=== PATIENT | female | born 1955 | race Asian ===

== ENCOUNTER 2017-03-04 08:10 | Outpatient (CLI) | payer BC, OTHER ==
[~2017-03-04 08:10] MED LIST: ASPI-605 PO; CHOL100044 PO
[2017-03-04 08:50] LABS: CHOLESTEROL 202 mg/dL (<200); HDL CHOLESTEROL 54 mg/dL (40-60); LDL 121 mg/dL (0-99); TRIGLYCERIDES 111 mg/dL (30-150)
== END 2017-03-04 23:59 | disposition home or self-care (01) ==
LOC: LAB 08:10
PROVIDERS: ATTEND Family Medicine
DX: E78.5 Hyperlipidemia, unspecified (principal); D68.9 Coagulation defect, unspecified
CPT/HCPCS: 80061-TC; 86147

== ENCOUNTER 2017-03-05 13:21 | Outpatient (CLI) | payer BC, OTHER | END 2017-03-05 23:59 | disposition home or self-care (01) | LOC: CARD 13:21 | PROVIDERS: ATTEND Family Medicine | DX: I51.7 Cardiomegaly (principal) | CPT/HCPCS: 93307-TC ==

== ENCOUNTER 2017-03-13 10:29 | Outpatient (CLI) | payer BC, OTHER ==
[2017-03-16 14:14] LABS: *CARD ANTI-CARDIOLIPIN AB IgA <9 APL U/mL (0-11); *CARD ANTI-CARDIOLIPIN AB IgG <9 GPL U/mL (0-14); *CARD ANTI-CARDIOLIPIN AB IgM 14 MPL U/mL (0-12)
== END 2017-03-13 23:59 | disposition home or self-care (01) ==
LOC: LAB 10:29
PROVIDERS: ATTEND Family Medicine
DX: D68.9 Coagulation defect, unspecified (principal)
CPT/HCPCS: 36415; 86147

== ENCOUNTER 2017-03-16 09:40 | Outpatient (CLI) | payer BC, OTHER | END 2017-03-16 23:59 | disposition home or self-care (01) | LOC: US 09:40 | PROVIDERS: ATTEND Family Medicine | DX: D68.9 Coagulation defect, unspecified (principal) | CPT/HCPCS: 76700-TC ==

== ENCOUNTER 2017-03-26 12:14 | Outpatient (CLI) | payer BC, OTHER ==
[2017-03-26 13:02] LABS: BASOPHILS % (AUTO) 0.2 % (0.0-2.0); EOSINOPHILS # (AUTO) 0.1 /CMM (0.0-0.7); EOSINOPHILS % (AUTO) 0.9 % (0.0-6.0); HEMATOCRIT 42 % (33-45); HEMOGLOBIN 14.1 g/dL (11.5-14.8); LYMPHOCYTES # (AUTO) 1.9 /CMM (0.8-4.8); LYMPHOCYTES % (AUTO) 28.4 % (20.0-44.0); MEAN CORPUSCULAR HEMOGLOBIN 29 PG (26.0-33.0); MEAN CORPUSCULAR HGB CONC 34 g/dl (31.0-36.0); MEAN CORPUSCULAR VOLUME 86 fL (82-100); MONOCYTES # (AUTO) 0.5 /CMM (0.1-1.30); MONOCYTES % (AUTO) 7.4 % (2.0-12.0); NEUTROPHILS # (AUTO) 4.3 /CMM (1.8-8.9); NEUTROPHILS % (AUTO) 63.1 % (43.0-81.0); PLATELET COUNT (AUTO) 291 /CMM (150-450); RDW COEFFICIENT OF VARIATION 12.6 (11.5-15.0); RED BLOOD CELL COUNT(AUTO) 4.88 MIL/uL (4.0-5.2); WHITE BLOOD COUNT (AUTO) 6.8 K/uL (4.3-11.0)
[2017-03-26 13:27] LABS: APPEARANCE,URINE CLEAR (CLEAR); BILIRUBIN,URINE NEGATIVE (NEGATIVE); BLOOD, URINE NEGATIVE Ery/uL (NEGATIVE); COLOR,URINE YELLOW (YELLOW); KETONES,URINE NEGATIVE (NEGATIVE); LEUKOCYTE ESTERASE ,URINE NEGATIVE (NEGATIVE); NITRITE, URINE NEGATIVE (NEGATIVE); PROTEIN,URINE NEGATIVE (NEGATIVE); UGLUCOSE NEGATIVE (NEGATIVE); UROBILINOGEN,URINE 0.2 EU/dL (0.2)
[2017-03-26 14:01] LABS: C-REACTIVE PROTEIN 0.6 mg/dL (0.0-0.9)
[2017-03-26 14:02] LABS: ALBUMIN 3.6 g/dL (3.4-5.0); BILIRUBIN,TOTAL 0.5 mg/dL (0.2-1.0); CALCIUM, SERUM 8.6 mg/dL (8.5-10.1); CREATININE 0.9 mg/dL (0.6-1.3); POTASSIUM 3.9 mmol/L (3.5-5.1); TOTAL PROTEIN, SERUM 7.4 g/dL (6.4-8.2)
[2017-03-29 09:09] LABS: *PTT-LA 55.3 sec (0.0-43.6); *dPT CONFIRM RATIO 1.18 Ratio (0.00-1.40); *dRVVT 49.1 sec (0.0-47.0); *dRVVT MIX 41.9 sec (0.0-47.0)
[2017-03-30 05:28] LABS: *PTT-LA MIX 49.4 sec (0.0-40.6)
[2017-03-30 10:16] LABS: *INTERPRETATION Comment: (.)
== END 2017-03-26 23:59 | disposition home or self-care (01) ==
LOC: LAB 12:14
PROVIDERS: ATTEND Internal Medicine Hematology & Oncology
DX: I73.00 Raynaud's syndrome without gangrene (principal); M34.9 Systemic sclerosis, unspecified; D68.62 Lupus anticoagulant syndrome
CPT/HCPCS: 36415; 80053-TC; 81000-TC; 85025-TC; 85378-TC; 85613; 85652-TC; 85670; 85705; 85732; 86140-TC

== ENCOUNTER 2017-04-22 20:50 | Inpatient (IN) | payer BC, OTHER ==
[~2017-04-22] VITALS: Ht 165.1 cm; Wt 84.4 kg
--- NOTE | 2017-04-22 20:57 | NUR ---
to bed 3 ambulatory c/o intermittent dizziness x2 days, pt took 2 tabs of meclizine without any relief. pt aaox4 no acute distress noted, resp even and unlabored. place pt on cardiac monitoring, continuous pox. pending er md medley.
--- NOTE | 2017-04-22 21:01 | NUR ---
er md at bedside to eval pt with orders received.
[2017-04-22] MEDS ORDERED: METOCLOPRAMIDE HCL 10 MG/2 ML VIAL ONE (21:10)
[2017-04-22] MEDS ORDERED: IV NS 0.9% 1,000 ML ONE (21:10)
[2017-04-22] MEDS ORDERED: MORPHINE SULFATE INJ 2 MG/ML DISP.SYRIN ONE (21:10)
[2017-04-22] MEDS ORDERED: IV SET PRIMARY 1 EA INFUS.SET MC ONE (21:10)
--- NOTE | 2017-04-22 21:24 | NUR ---
pt medicated by rn per er md order.
--- NOTE | 2017-04-22 21:26 | NUR ---
pt at bedside.
[2017-04-22] MEDS ORDERED: MORPHINE SULFATE INJ 2 MG/ML DISP.SYRIN IV ONE (21:30)
[2017-04-22] MEDS ORDERED: IV NS 0.9% 1,000 ML BAG IV ONE (21:30)
[2017-04-22] MEDS ORDERED: METOCLOPRAMIDE HCL 10 MG/2 ML VIAL IV ONE (21:30)
--- NOTE | 2017-04-22 21:59 | NUR ---
pt still c/o dizziness upon movement, er md made aware.
--- NOTE | 2017-04-22 22:00 | NUR ---
heidy sanderson at bedside to re-eval pt.
[2017-04-22] MEDS ORDERED: DIAZEPAM 5 MG/ML 2 ML DISP.SYRIN ONE (22:07)
--- NOTE | 2017-04-22 22:08 | NUR ---
pt attempted to ambulate, pt still c/o dizziness, assisted pt back to bed. er md made aware with orders received. rn to medicate pt.
[2017-04-22] MEDS ORDERED: DIAZEPAM 10 MG TABLET PO ONE (22:30)
[2017-04-22] MEDS ORDERED: DIAZEPAM 5 MG/ML 2 ML DISP.SYRIN IV ONE (22:30)
--- NOTE | 2017-04-22 23:26 | NUR ---
pt attempted to ambulate, pt still c/o dizziness, assisted pt back to bed. er made aware.
--- NOTE | 2017-04-22 23:46 | NUR ---
PAGED DR PUGH FOR PANEL CALL
--- NOTE | 2017-04-22 23:48 | NUR ---
heidy sanderson talking to dr. valdez regarding pt admission.
--- NOTE | 2017-04-23 00:16 | NUR ---
regarding pt admission.
[2017-04-23] MEDS ORDERED: MAGNESIUM HYDROXIDE 30 ML UDC PO PRN (00:30)
[2017-04-23] MEDS ORDERED: IV 1/2NS 1000 ML 1,000 ML IV PRN (00:30)
[2017-04-23] MEDS ORDERED: TEMAZEPAM 15 MG CAPSULE PO PRN (00:30)
[2017-04-23] MEDS ORDERED: MORPHINE SULFATE INJ 2 MG/ML DISP.SYRIN IV PRN (00:30)
[2017-04-23] MEDS ORDERED: ONDANSETRON HCL/PF 4 MG/2 ML VIAL IVP PRN (00:30)
[2017-04-23 00:35] VITALS: BP 109/66
--- NOTE | 2017-04-23 00:35 | NUR ---
RN NOTES RECEIVED PT FROM ER WITH DX. OF DIZZINESS, A/OX4, A-FIB ON TELE MONITOR HR89, PT IS FEELING DIZZY, MAKE PT COMFORTABLE, CALL LIGHT WITHIN REACH, SIDERAILS UPX2 CONTINUE TO MONITOR
[2017-04-23] MEDS ORDERED: IV 1/2NS 1000 ML 1,000 ML IV ONE (01:01)
[2017-04-23] MEDS ORDERED: IV SET PRIMARY PUMP SET 1 EA INFUS.SET MC ONE (01:01)
--- NOTE | 2017-04-23 02:00 | NUR ---
RN NOTES PT WENT TO THE TOILET FROM AFIB CONVERTED TO SR
--- NOTE | 2017-04-23 06:54 | NUR ---
RN NOTES SLEEPING BUT AROUSABLE, DENIES PAIN, NO SOB, CALL LIGHT WITHIN REACH, PT NEEDS ATTENDED. ENDORSED TO DAYSHIFT NURSE FOR CONTINUITY OF CARE
--- NOTE | 2017-04-23 07:20 | NUR ---
RN NOTES SPOKE TO DR. TANG AND GOT AN ORDER OF MECLIZINE 25 MG PO, ORDER MOTED AND CARRIED OUT
[2017-04-23] MEDS: MECLIZINE HCL 12.5 MG TABLET PO PRN ×2 (07:24→20:06)
--- NOTE | 2017-04-23 07:27 | NUR ---
RN NOTES COMPLAINED OF DIZZINESS -MECLIZINE 250MG PO GIVEN ORDERED, V/S STABLE. ENDORSED TO [facility] FOR CONTINUITY OF CARE
[2017-04-23] MEDS ORDERED: MECLIZINE HCL 12.5 MG TABLET PO PRN (07:30)
[2017-04-23 07:46] LABS: BASOPHILS % (AUTO) 0.3 % (0.0-2.0); EOSINOPHILS % (AUTO) 0.7 % (0.0-6.0); HEMATOCRIT 41 % (33-45); HEMOGLOBIN 14.1 g/dL (11.5-14.8); LYMPHOCYTES # (AUTO) 1.7 /CMM (0.8-4.8); LYMPHOCYTES % (AUTO) 24.6 % (20.0-44.0); MEAN CORPUSCULAR HEMOGLOBIN 29 PG (26.0-33.0); MEAN CORPUSCULAR HGB CONC 34 g/dl (31.0-36.0); MEAN CORPUSCULAR VOLUME 86 fL (82-100); MONOCYTES # (AUTO) 0.6 /CMM (0.1-1.30); MONOCYTES % (AUTO) 8.6 % (2.0-12.0); NEUTROPHILS # (AUTO) 4.7 /CMM (1.8-8.9); NEUTROPHILS % (AUTO) 65.8 % (43.0-81.0); PLATELET COUNT (AUTO) 278 /CMM (150-450); RDW COEFFICIENT OF VARIATION 12.9 (11.5-15.0); WHITE BLOOD COUNT (AUTO) 7.1 K/uL (4.3-11.0)
--- NOTE | 2017-04-23 07:55 | NUR ---
MS RN RECEIVED ON BED, AWAKE,ALERT,ORIENTED X4,NOT IN ANY FORM OF DISTRESS, RESPIRATIONS EVEN AND UNLABORED,NO SOB NOTED. WILL MONITOR PATIENT.
[2017-04-23 08:00] VITALS: BP 94/43
--- NOTE | 2017-04-23 08:00 | NUR ---
MS/RN S/B Dr Gilman Seen by Dr Gilman - hypotension likely due to dehydration, continue with fluids. Outpatient ablation recommended due to episodes of a-fib.
[2017-04-23 08:14] LABS: THYROID STIMULATING HORMONE 1.745 uIU/mL (0.358-3.74)
[2017-04-23 08:18] LABS: BILIRUBIN,TOTAL 0.6 mg/dL (0.2-1.0); CALCIUM, SERUM 8.2 mg/dL (8.5-10.1); CREATININE 0.8 mg/dL (0.6-1.3); MAGNESIUM 1.9 mg/dL (1.8-2.4); PHOSPHORUS 3.7 mg/dL (2.5-4.9); POTASSIUM 3.8 mmol/L (3.5-5.1); TOTAL PROTEIN, SERUM 6.5 g/dL (6.4-8.2)
--- NOTE | 2017-04-23 09:10 | NUR ---
MS/RN Labs Morning labs reviewed: -BNP 254 -LDL 130
--- NOTE | 2017-04-23 09:30 | NUR ---
MS BYRD BREAKFAST SERVED,DUE MEDS GIVEN,TOLERATED WELL.
[2017-04-23] MEDS: PANTOPRAZOLE 40 MG TABLET.DR PO SCH (09:34)
[2017-04-23] MEDS: CHOLECALCIFEROL 1,000 UNIT TABLET (VIT D3) PO SCH (09:34)
[2017-04-23] MEDS: ASPIRIN EC 81 MG TABLET.DR PO SCH (09:36)
--- NOTE | 2017-04-23 10:30 | NUR ---
MS/RN S/B Dr Stuart Seen by Dr Stuart - continue with telemetry monitoring, 2D echo and neurology consult ordered.
--- NOTE | 2017-04-23 14:00 | NUR ---
MS RN REPORT GIVEN TO [facility] FOR CONTINUITY OF CARE.
[2017-04-23 16:00] VITALS: BP 105/62
[2017-04-23 20:00] VITALS: BP 112/61
--- NOTE | 2017-04-23 21:37 | NUR ---
GRINDER AND HONER OPERATOR AUTOMATIC NOTES RECEIVED PATIENT IN BED, IN NO APPARENT DISTRESS, DENIES SOB, DENIES PAIN. PATENT STATES THAT SHE IS STILL FEELING A LITTLE DIZZY, BUT THAT IT HAS IMPROVED. IV LINE PATENT, NO IV FLUIDS INFUSING AT THIS TIME. ALL NEEDS MET, CALL LIGHT WITHIN REACH.
[2017-04-23] MEDS: ACETAMINOPHEN 325 MG TABLET PO PRN (22:23)
[2017-04-24] VITALS (7 sets, daily range): BP systolic 99–115; BP diastolic 53–64
--- NOTE | 2017-04-24 03:30 | NUR ---
MOBILE SECURITY ARCHITECT NOTES NO APPARENT DISTRESS NOTED, ON TELE MONITOR SR 60S. ALL NEEDS MET, CALL LIGHT WITHIN REACH.
--- NOTE | 2017-04-24 06:54 | NUR ---
CABLE FERRYBOAT OPERATOR CLOSING NOTES PATIENT IN BED, NO APPARENT DISTRESS, NOTED, DENIES PAIN, NO SOB. PATIENT STATES SHE IS STILL GETTING DIZZY, BUT STATES IMPROVEMENT. ALL NEEDS MET, CALL LIGHT WITHIN REACH.
[2017-04-24 07:02] LABS: BASOPHILS % (AUTO) 0.4 % (0.0-2.0); EOSINOPHILS # (AUTO) 0.1 /CMM (0.0-0.7); EOSINOPHILS % (AUTO) 1.3 % (0.0-6.0); HEMATOCRIT 41 % (33-45); LYMPHOCYTES # (AUTO) 2.2 /CMM (0.8-4.8); LYMPHOCYTES % (AUTO) 31.9 % (20.0-44.0); MEAN CORPUSCULAR HEMOGLOBIN 30 PG (26.0-33.0); MEAN CORPUSCULAR HGB CONC 34 g/dl (31.0-36.0); MEAN CORPUSCULAR VOLUME 87 fL (82-100); MONOCYTES # (AUTO) 0.6 /CMM (0.1-1.30); MONOCYTES % (AUTO) 9.2 % (2.0-12.0); NEUTROPHILS # (AUTO) 3.9 /CMM (1.8-8.9); NEUTROPHILS % (AUTO) 57.2 % (43.0-81.0); PLATELET COUNT (AUTO) 260 /CMM (150-450); RDW COEFFICIENT OF VARIATION 12.8 (11.5-15.0); RED BLOOD CELL COUNT(AUTO) 4.74 MIL/uL (4.0-5.2); WHITE BLOOD COUNT (AUTO) 6.9 K/uL (4.3-11.0)
[2017-04-24 07:26] LABS: ALBUMIN 3.1 g/dL (3.4-5.0); BILIRUBIN,TOTAL 0.6 mg/dL (0.2-1.0); CALCIUM, SERUM 8.1 mg/dL (8.5-10.1); CREATININE 0.8 mg/dL (0.6-1.3); MAGNESIUM 1.8 mg/dL (1.8-2.4); PHOSPHORUS 3.9 mg/dL (2.5-4.9); POTASSIUM 3.8 mmol/L (3.5-5.1); TOTAL PROTEIN, SERUM 6.6 g/dL (6.4-8.2)
--- NOTE | 2017-04-24 08:00 | NUR ---
MOLD CLOSER AM NOTES RECEIVED ON BED, AWAKE,ALERT,ORIENTED X4,C/O DIZZINESS-ANTIVERT GIVEN PRN.RESPIRATIONS EVEN AND NON LABORED,NO SOB NOTED. WILL MONITOR PATIENT.
[2017-04-24] MEDS: ASPIRIN EC 81 MG TABLET.DR PO SCH (08:31)
[2017-04-24] MEDS: MECLIZINE HCL 12.5 MG TABLET PO PRN ×2 (08:32→14:19)
[2017-04-24] MEDS: PANTOPRAZOLE 40 MG TABLET.DR PO SCH (08:32)
--- NOTE | 2017-04-24 09:13 | NUR ---
PT C/O DIZZINESS GETTING WORST. INSTRUCTED PT TO CALL FOR ASSISTANCE WHEN GETTING OOB.NOTIFIED DR TANG WHO CAME TO SEE THE PT.CALL LIGHT PLACED WITHIN REACH.
[2017-04-24] MEDS: CHOLECALCIFEROL 1,000 UNIT TABLET (VIT D3) PO SCH (09:50)
--- NOTE | 2017-04-24 10:30 | NUR ---
PT SITTING IN BED FINISHING HER BREAKFAST.CALL LIGHT PLACED WITHIN REACH.WILL CONTINUE TO MONITOR.
--- NOTE | 2017-04-24 11:30 | NUR ---
PAGED DR BARBER REGARDING PT'S DIZZINESS WHICH REMAINS EVEN AFTER TAKING THE ANTIVERT.OFFERED ANTIVERT TO THE PT BUT PT REFUSED AND STATED THAT IT WAS TOO SOON AND WILL TAKE IT LATER.WILL CONTINUE TO MONITOR.
--- NOTE | 2017-04-24 13:00 | NUR ---
DR BARBER RETURNED CALL AND MADE AWARE OF PT'S CONTINUING DIZZINESS WITH NO NEW ORDER.DR BARBER STATED THAT PT HAS NO STROKE AND TO CLARIFY ANTIVERT ORDERS TO THE HOSPITALIST,DR TANG.
[2017-04-24] MEDS: ACETAMINOPHEN 325 MG TABLET PO PRN ×2 (13:17→21:58)
[2017-04-24] MEDS ORDERED: SCOPOLAMINE HBR 1 EA PATCH.TD72 TD SCH (15:00)
--- NOTE | 2017-04-24 18:58 | NUR ---
RN PM NOTES PATIENT IN BED WITH FAMILY. NO ACUTE DISTRESS NOTED. PATIENT STATED FEELING A LITTLE DIZZY BUT DENIES PAIN. BED IN LOWEST POSITION. CALL LIGHT WITHIN REACH. WILL CONTINUE TO MONITOR.
--- NOTE | 2017-04-24 19:45 | NUR ---
TELE/RN NOTES RECEIVED PT. LYING DOWN IN BED. AWAKE, ALERT AND ORIENTED X4. BREATHING EVEN AND UNLABORED ON ROOM AIR. NO SOB, RESPIRATORY DISTRESS OR COMPLAINTS OF PAIN NOTED AT THIS TIME. PT. COMPLAINS OF SLIGHT DIZZINESS. PT. HAS NO IV ACCESS MD AWARE. EDUCATED PT. ON CALLING FOR ASSISTANCE BEFORE GETTING OUT OF BED. PT. VERBALIZED UNDERSTANDING. BED IN LOWEST POSITION, CALL LIGHT WITHIN REACH, WILL CONTINUE TO MONITOR. Addendum: 04/24/17 at 2308 by CONCETTA RODRÍGUEZ RN PT. WITH EXTERNAL GLOVE BOARDER PRESENT AND INTACT CURRENT RHYTHM = SINUS RHYTHM HR 78.
[2017-04-24] MEDS: DIAZEPAM 2 MG TABLET PO PRN (21:58)
[2017-04-25 04:00] VITALS: BP 103/63
--- NOTE | 2017-04-25 07:00 | NUR ---
TELE/RN NOTES PT. LYING DOWN IN BED. AWAKE, ALERT AND ORIENTED X4. BREATHING EVEN AND UNLABORED ON ROOM AIR. NO SOB, RESPIRATORY DISTRESS OR COMPLAINTS OF PAIN NOTED AT THIS TIME. NO COMPLAINTS OF DIZZINESS AT THIS TIME. PT. STATED SHE HAD ONE EPISODE OF DIZZINESS IN THE MIDDILE OF THE NIGHT BUT IT WENT AWAY. PT. HAS NO IV ACCESS MD AWARE. ALL PT. NEEDS MET. BED IN LOWEST POSITION, CALL LIGHT WITHIN REACH, WILL ENDORSE TO DAYSHIFT NURSE FOR CONTINUITY OF CARE.
--- NOTE | 2017-04-25 07:25 | NUR ---
AM RN NOTE Received patient awake, A/O X4 verbally responsive. No SOB noted resp even and non-labored. No IV site, MD aware. No acute distress noted. Bed in low locked position. Will continue to monitor. Call light with in reach.
[2017-04-25 08:00] VITALS: BP 109/76
[2017-04-25] MEDS: CHOLECALCIFEROL 1,000 UNIT TABLET (VIT D3) PO SCH (08:03)
[2017-04-25] MEDS: ASPIRIN EC 81 MG TABLET.DR PO SCH (08:03)
[2017-04-25] MEDS: PANTOPRAZOLE 40 MG TABLET.DR PO SCH (08:03)
[2017-04-25] MEDS: MECLIZINE HCL 12.5 MG TABLET PO PRN (09:19)
[2017-04-25] MEDS ORDERED: ONDANSETRON 4 MG TAB.RAPDIS PO PRN (10:30)
[2017-04-25 16:00] VITALS: BP 117/71
--- NOTE | 2017-04-25 18:45 | NUR ---
AM RN NOTE Patient resting in her bed, no acute distress noted. Will endorse care to next shift.
--- NOTE | 2017-04-25 19:45 | NUR ---
RN OPENING NOTES RECEIVED REPORT FROM ROBERTO NIELSEN RN. FOUND Pt AWAKE SITTING IN CHAIR. ON TELE SR. Pt IS A/OX4, VERBAL , ABLE TO MAKE NEEDS KNOWN. NO S/S OF ACUTE DISTRESS OR SOB NOTED. NO C/O PAIN OR DIZZINESS AT THIS TIME. NO IV ACCESS MD AWARE. SAFETY MEASURES IN PLACE. BED LOW, LOCKED, HOB ELEVATED, SIDE RAILS UP, CALL LIGHT AND BEDSIDE TABLE WITHIN REACH. WILL CONTINUE TO MONITOR Pt THROUGHOUT THE NIGHT FOR SAFETY.
[2017-04-25 20:00] VITALS: BP 121/74
[2017-04-25] MEDS: ACETAMINOPHEN 325 MG TABLET PO PRN (21:20)
[2017-04-25] MEDS: DIAZEPAM 2 MG TABLET PO PRN (21:20)
[2017-04-26] VITALS: BP 96/54
[2017-04-26 04:00] VITALS: BP 100/58
--- NOTE | 2017-04-26 06:39 | NUR ---
RN CLOSING NOTES NO SIGNIFICANT CHANGES DURING THE SHIFT. ALL NEEDS MET AND ATTENDED TO. SAFETY MEASURES IN PLACE. WILL ENDORSE TO DAYSHIFT RN FOR Pt's SON.
--- NOTE | 2017-04-26 07:30 | NUR ---
AM RN NOTE Received patient awake, A/O X4 verbally responsive. On tele monitor, SR. No HL/IV site. Pt still with on & off episodes of dizziness @ times. Bed in low locked position, call light with in easy reach. Will continue to monitor.
[2017-04-26 08:00] VITALS: BP 101/53
[2017-04-26] MEDS: ASPIRIN EC 81 MG TABLET.DR PO SCH (08:54)
[2017-04-26] MEDS: CHOLECALCIFEROL 1,000 UNIT TABLET (VIT D3) PO SCH (08:55)
[2017-04-26] MEDS: PANTOPRAZOLE 40 MG TABLET.DR PO SCH (08:55)
[2017-04-26] MEDS ORDERED: SCOP1PAT TP (10:17)
--- NOTE | 2017-04-26 12:15 | NUR ---
AM RN NOTE Patient seen and assessed by Dr. Stuart with discharge (home) order. Patient awake, A/O X4 verbally responsive. Discharge instructions on medications and teachings given and verbalize understanding. No acute distress noted. No HL. Skin intact. Will continue to monitor.
--- NOTE | 2017-04-26 13:15 | NUR ---
AM RN NOTE Patient awake, A/O X4. Discharged/ left unit at this time as accompanied by spouse with all her belongings.
== END 2017-04-26 13:15 | disposition home or self-care (01) | DRG 74 ==
LOC: ER 20:53 → TELE 04-23 00:26 → MED 04-26 08:42
PROVIDERS: ADMIT Internal Medicine; ATTEND Internal Medicine
DX: G90.8 Other disorders of autonomic nervous system (principal); H81.399 Other peripheral vertigo, unspecified ear; I49.9 Cardiac arrhythmia, unspecified; E66.9 Obesity, unspecified; I73.00 Raynaud's syndrome without gangrene; Z68.31 Body mass index [BMI] 31.0-31.9, adult; K21.9 Gastro-esophageal reflux disease without esophagitis; I95.1 Orthostatic hypotension; I48.0 Paroxysmal atrial fibrillation
CPT/HCPCS: 36415; 70450-TC; 71010-TC; 80053-TC; 80061-TC; 83540-TC; 83735-TC; 83880; 84100-TC; 84443-TC; 85025-TC; 87081-TC; 93880-TC; A4606; J2270; J2765; J3360; J3490; J7030; J8597; Z7610

== ENCOUNTER 2017-04-27 11:23 | Outpatient (CLI) | payer BC, OTHER ==
[~2017-04-27 11:23] MED LIST changes: +SCOP1PAT TP
[2017-04-27 12:57] LABS: THYROID STIMULATING HORMONE 1.04 uIU/mL (0.358-3.74)
== END 2017-04-27 23:59 | disposition home or self-care (01) ==
LOC: LAB 11:23
PROVIDERS: ATTEND Family Medicine
DX: I48.0 Paroxysmal atrial fibrillation (principal); R42 Dizziness and giddiness
CPT/HCPCS: 36415; 84439-TC; 84443-TC; 84480

== ENCOUNTER 2017-04-28 08:22 | Outpatient (CLI) | payer BC, OTHER ==
[2017-04-28] MEDS ORDERED: GADOVERSETAMIDE 5 MMOL/10 ML VIAL IJ ONE (08:23)
== END 2017-04-28 23:59 | disposition home or self-care (01) ==
LOC: MRI 08:22
PROVIDERS: ATTEND Family Medicine
DX: R42 Dizziness and giddiness (principal)
CPT/HCPCS: 70542; 70553; A9579

== ENCOUNTER 2017-07-21 08:38 | Outpatient (CLI) | payer BC, OTHER | END 2017-07-21 23:59 | disposition home or self-care (01) | LOC: CT 08:38 | PROVIDERS: ATTEND Internal Medicine Pulmonary Disease | DX: R76.11 Nonspecific reaction to tuberculin skin test without active tuberculosis (principal) | CPT/HCPCS: 71250-TC ==

== ENCOUNTER 2017-08-20 13:52 | Outpatient (CLI) | payer BC, OTHER | END 2017-08-20 23:59 | disposition home or self-care (01) | LOC: LAB 13:52 | PROVIDERS: ATTEND Family Medicine | DX: Z12.4 Encounter for screening for malignant neoplasm of cervix (principal); Z11.3 Encounter for screening for infections with a predominantly sexual mode of transmission | CPT/HCPCS: 87491; 87591; 88142 ==

== ENCOUNTER 2017-10-28 08:38 | Outpatient (CLI) | payer BC ==
[2017-10-28 09:38] LABS: ALBUMIN 4.1 g/dL (3.4-5.0); BILIRUBIN,TOTAL 0.5 mg/dL (0.2-1.0); CALCIUM, SERUM 9.1 mg/dL (8.5-10.1); CREATININE 0.8 mg/dL (0.6-1.3)
[2017-10-28 09:39] LABS: BASOPHILS % (AUTO) 0.3 % (0.0-2.0); EOSINOPHILS # (AUTO) 0.1 /CMM (0.0-0.7); EOSINOPHILS % (AUTO) 1.1 % (0.0-6.0); HEMATOCRIT 44 % (33-45); HEMOGLOBIN 14.5 g/dL (11.5-14.8); LYMPHOCYTES % (AUTO) 29.3 % (20.0-44.0); MEAN CORPUSCULAR HEMOGLOBIN 29 PG (26.0-33.0); MEAN CORPUSCULAR HGB CONC 33 g/dl (31.0-36.0); MEAN CORPUSCULAR VOLUME 87 fL (82-100); MONOCYTES # (AUTO) 0.5 /CMM (0.1-1.30); MONOCYTES % (AUTO) 7.7 % (2.0-12.0); NEUTROPHILS # (AUTO) 4.1 /CMM (1.8-8.9); NEUTROPHILS % (AUTO) 61.6 % (43.0-81.0); PLATELET COUNT (AUTO) 323 /CMM (150-450); RDW COEFFICIENT OF VARIATION 12.4 (11.5-15.0); WHITE BLOOD COUNT (AUTO) 6.7 K/uL (4.3-11.0)
[2017-10-28 09:47] LABS: THYROID STIMULATING HORMONE 0.984 uIU/mL (0.358-3.74)
[2017-10-29 17:27] LABS: *ANA ANTI-CENTROMERE B AB <0.2 AI (0.0-0.9); *ANA ANTI-DNA(DS) AB, QN <1 IU/mL (0-9); *ANA ANTI-JO-1 <0.2 AI (0.0-0.9); *ANA ANTICHROMATIN ANTIBODY <0.2 AI (0.0-0.9); *ANA RNP ANTIBODIES 0.5 AI (0.0-0.9); *ANA SJOGREN'S ANTI-SS-A <0.2 AI (0.0-0.9); *ANA SJOGREN'S ANTI-SS-B <0.2 AI (0.0-0.9); *ANAANTI-SCLERODERMA-70 AB 1.4 AI (0.0-0.9); *ANASMITH AB <0.2 AI (0.0-0.9)
[2017-10-30 05:39] LABS: COMPLEMENT C3, SERUM 144 mg/dL (82-167); COMPLEMENT C4, SERUM 38 mg/dL (14-44)
[2017-10-30 13:25] LABS: *ANCANTIMYELOPEROXIDASE (MPO) <9.0 U/mL (0.0-9.0); *ANCANTIPROTEINASE 3 (PR-3) AB <3.5 U/mL (0.0-3.5)
[2017-11-02 14:13] LABS: *ANCA ATYPICAL p-ANCA <1:20 titer (Neg:<1:20); *ANCA CYTOPLASMIC (C-ANCA) <1:20 titer (Neg:<1:20); *ANCA PERINUCLEAR (P-ANCA) <1:20 titer (Neg:<1:20)
== END 2017-10-28 23:59 | disposition home or self-care (01) ==
LOC: LAB 08:38
PROVIDERS: ATTEND Family Medicine
DX: L94.0 Localized scleroderma [morphea] (principal); E55.9 Vitamin D deficiency, unspecified; R79.89 Other specified abnormal findings of blood chemistry
CPT/HCPCS: 36415; 80053-TC; 80061-TC; 82306; 83520; 84439-TC; 84443-TC; 85025-TC; 86160; 86225; 86235; 86256; 86431-TC

== ENCOUNTER 2018-03-25 07:57 | Outpatient (CLI) | payer BC ==
[2018-03-25 08:50] LABS: APPEARANCE,URINE CLEAR (CLEAR); BILIRUBIN,URINE NEGATIVE (NEGATIVE); BLOOD, URINE NEGATIVE Ery/uL (NEGATIVE); COLOR,URINE YELLOW (YELLOW); KETONES,URINE NEGATIVE (NEGATIVE); LEUKOCYTE ESTERASE ,URINE NEGATIVE (NEGATIVE); NITRITE, URINE NEGATIVE (NEGATIVE); PROTEIN,URINE NEGATIVE (NEGATIVE); UGLUCOSE NEGATIVE (NEGATIVE); UROBILINOGEN,URINE 0.2 EU/dL (0.2)
[2018-03-25 09:25] LABS: ALANINE AMINOTRANSFERASE 33 U/L (12-78); ALBUMIN 3.9 g/dL (3.4-5.0); ALKALINE PHOSPHATASE 73 U/L (46-116); ASPARTATE AMINOTRANSFERASE 26 U/L (15-37); BILIRUBIN,TOTAL 0.5 mg/dL (0.2-1.0); CALCIUM, SERUM 9.1 mg/dL (8.5-10.1); CARBON DIOXIDE 22 mmol/L (21-32); CHLORIDE 106 mmol/L (98-107); CREATININE 0.8 mg/dL (0.6-1.3); GLUCOSE 104 mg/dL (74-106); POTASSIUM 4.2 mmol/L (3.5-5.1); SODIUM SERUM 140 mmol/L (136-145); TOTAL PROTEIN, SERUM 7.7 g/dL (6.4-8.2); UREA NITROGEN, BLOOD 20 mg/dL (7-18)
[2018-03-25 09:34] LABS: CHOLESTEROL 177 mg/dL (<200); HDL CHOLESTEROL 63 mg/dL (40-60); LDL 100 mg/dL (0-99); THYROID STIMULATING HORMONE 1.207 uIU/mL (0.358-3.74); TRIGLYCERIDES 126 mg/dL (30-150)
[2018-03-25 09:36] LABS: C-REACTIVE PROTEIN < 0.2 mg/dL (0.0-0.9)
[2018-03-26 20:14] LABS: *ANA SJOGREN'S ANTI-SS-A <0.2 AI (0.0-0.9); *ANA SJOGREN'S ANTI-SS-B <0.2 AI (0.0-0.9)
== END 2018-03-25 23:59 | disposition home or self-care (01) ==
LOC: LAB 07:57
PROVIDERS: ATTEND Family Medicine
DX: I48.0 Paroxysmal atrial fibrillation (principal); E78.2 Mixed hyperlipidemia; M34.9 Systemic sclerosis, unspecified; E55.9 Vitamin D deficiency, unspecified
CPT/HCPCS: 36415; 80053-TC; 80061-TC; 81000-TC; 82306; 83735-TC; 84439-TC; 84443-TC; 85652-TC; 86140-TC; 86235; 86431-TC

== ENCOUNTER 2018-05-19 08:23 | Outpatient (CLI) | payer BC | END 2018-05-19 23:59 | disposition home or self-care (01) | LOC: CT 08:23 | PROVIDERS: ATTEND Internal Medicine Pulmonary Disease | DX: I25.10 Atherosclerotic heart disease of native coronary artery without angina pectoris (principal); J39.8 Other specified diseases of upper respiratory tract; R76.11 Nonspecific reaction to tuberculin skin test without active tuberculosis | CPT/HCPCS: 71250-TC ==

== ENCOUNTER 2018-07-30 07:55 | Outpatient (CLI) | payer BC | END 2018-07-30 23:59 | disposition home or self-care (01) | LOC: LAB 07:55 | PROVIDERS: ATTEND Family Medicine | DX: Z11.59 Encounter for screening for other viral diseases (principal); Z79.899 Other long term (current) drug therapy; Z88.0 Allergy status to penicillin; Z88.2 Allergy status to sulfonamides | CPT/HCPCS: 36415; 83735-TC; 86709-TC; 86803 ==

== ENCOUNTER 2018-08-04 09:15 | Outpatient (CLI) | payer BC | END 2018-08-04 23:59 | disposition home or self-care (01) | LOC: LAB 09:15 | PROVIDERS: ATTEND Family Medicine | DX: Z12.4 Encounter for screening for malignant neoplasm of cervix (principal); Z11.3 Encounter for screening for infections with a predominantly sexual mode of transmission; Z88.0 Allergy status to penicillin; Z88.2 Allergy status to sulfonamides | CPT/HCPCS: 87491; 87591; 88142 ==

== ENCOUNTER 2018-09-03 12:24 | Outpatient (CLI) | payer BC ==
[2018-09-03 13:45] LABS: BASOPHILS % (AUTO) 0.3 % (0.0-2.0); EOSINOPHILS % (AUTO) 0.5 % (0.0-6.0); HEMATOCRIT 43 % (33-45); HEMOGLOBIN 14.1 g/dL (11.5-14.8); LYMPHOCYTES # (AUTO) 1.9 /CMM (0.8-4.8); LYMPHOCYTES % (AUTO) 25.4 % (20.0-44.0); MEAN CORPUSCULAR HGB CONC 33 g/dl (31.0-36.0); MEAN CORPUSCULAR VOLUME 88 fL (82-100); MONOCYTES # (AUTO) 0.6 /CMM (0.1-1.30); MONOCYTES % (AUTO) 8.5 % (2.0-12.0); NEUTROPHILS # (AUTO) 4.9 /CMM (1.8-8.9); NEUTROPHILS % (AUTO) 65.3 % (43.0-81.0); PLATELET COUNT (AUTO) 322 /CMM (150-450); RDW COEFFICIENT OF VARIATION 12.7 (11.5-15.0); RED BLOOD CELL COUNT(AUTO) 4.85 MIL/uL (4.0-5.2); WHITE BLOOD COUNT (AUTO) 7.4 K/uL (4.3-11.0)
[2018-09-03 14:06] LABS: ALBUMIN 3.7 g/dL (3.4-5.0); BILIRUBIN,TOTAL 0.4 mg/dL (0.2-1.0); CALCIUM, SERUM 9.2 mg/dL (8.5-10.1); CREATININE 0.8 mg/dL (0.6-1.3); POTASSIUM 3.9 mmol/L (3.5-5.1); TOTAL PROTEIN, SERUM 7.5 g/dL (6.4-8.2)
[2018-09-03 14:14] LABS: THYROID STIMULATING HORMONE 0.881 uIU/mL (0.358-3.74); URIC ACID 4.7 mg/dL (2.6-7.2)
== END 2018-09-03 23:59 | disposition home or self-care (01) ==
LOC: LAB 12:24
PROVIDERS: ATTEND Family Medicine
DX: Z11.3 Encounter for screening for infections with a predominantly sexual mode of transmission (principal); M25.50 Pain in unspecified joint; E78.2 Mixed hyperlipidemia; E55.9 Vitamin D deficiency, unspecified
CPT/HCPCS: 36415; 80053-TC; 80061-TC; 84439-TC; 84443-TC; 84550-TC; 85025-TC; 86431-TC; 86592; 86706; 87806

== ENCOUNTER 2019-01-11 06:50 | Outpatient (CLI) | payer BC | END 2019-01-11 23:59 | disposition home or self-care (01) | LOC: RAD 06:50 | DX: M79.642 Pain in left hand (principal) | CPT/HCPCS: 73130-TC ==

== ENCOUNTER 2019-02-12 07:46 | Emergency (ER) | payer BC, OTHER ==
[~2019-02-12] VITALS: Ht 165.1 cm; Wt 87.1 kg
--- NOTE | 2019-02-12 08:23 | NUR ---
Patient presented to the ER c/o dizziness. On room air, breathing evenly and unlabored. connected to the monitor and pulse ox. kept comfortable, will continue to monitor accordingly.
[2019-02-12] MEDS ORDERED: ONDANSETRON HCL/PF 4 MG/2 ML VIAL ONE (08:30)
[2019-02-12] MEDS ORDERED: IV NS 0.9% 250 ML IV ONE (08:30)
[2019-02-12] MEDS ORDERED: ONDANSETRON HCL/PF 4 MG/2 ML VIAL IV ONE (08:30)
--- NOTE | 2019-02-12 09:26 | NUR ---
Peripheral IV removed. Patient discharged to home in stable condition. Written and verbal after care instructions given. Patient verbalizes understanding of instruction.
[2019-02-12 09:28] VITALS: BP 131/76
== END 2019-02-12 09:33 | disposition home or self-care (01) ==
LOC: ER 07:47
DX: R42 Dizziness and giddiness (principal); Z88.0 Allergy status to penicillin; Z88.2 Allergy status to sulfonamides; Z79.82 Long term (current) use of aspirin
CPT/HCPCS: 96374; 99283; A4606; J2405; J7050

== ENCOUNTER 2019-06-01 09:06 | Outpatient (CLI) | payer BC, OTHER ==
[2019-06-01 11:05] LABS: BASOPHILS % (AUTO) 0.4 % (0.0-2.0); EOSINOPHILS % (AUTO) 0.8 % (0.0-6.0); HEMATOCRIT 43 % (33-45); HEMOGLOBIN 14.7 g/dL (11.5-14.8); LYMPHOCYTES # (AUTO) 1.8 /CMM (0.8-4.8); LYMPHOCYTES % (AUTO) 24.5 % (20.0-44.0); MEAN CORPUSCULAR HGB CONC 34 g/dl (31.0-36.0); MEAN CORPUSCULAR VOLUME 88 fL (82-100); MONOCYTES # (AUTO) 0.5 /CMM (0.1-1.30); MONOCYTES % (AUTO) 7.4 % (2.0-12.0); NEUTROPHILS # (AUTO) 4.9 /CMM (1.8-8.9); NEUTROPHILS % (AUTO) 66.9 % (43.0-81.0); PLATELET COUNT (AUTO) 268 /CMM (150-450); RED BLOOD CELL COUNT(AUTO) 4.89 MIL/uL (4.0-5.2); WHITE BLOOD COUNT (AUTO) 7.4 K/uL (4.3-11.0)
[2019-06-01 11:28] LABS: ALBUMIN 3.8 g/dL (3.4-5.0); BILIRUBIN,TOTAL 0.4 mg/dL (0.2-1.0); CALCIUM, SERUM 9.1 mg/dL (8.5-10.1); CREATININE 0.9 mg/dL (0.6-1.3); TOTAL PROTEIN, SERUM 7.4 g/dL (6.4-8.2)
[2019-06-01 11:40] LABS: THYROID STIMULATING HORMONE 1.255 uIU/mL (0.358-3.74)
[2019-06-03 20:40] LABS: *CARD ANTI-CARDIOLIPIN AB IgG <9 GPL U/mL (0-14); *CARD ANTI-CARDIOLIPIN AB IgM 14 MPL U/mL (0-12); *INTERPRETATION Comment: (.); *PTT-LA 51.9 sec (0.0-51.9); *THROMBIN TIME 20.1 sec (0.0-23.0); *dPT CONFIRM RATIO 1.19 Ratio (0.00-1.40); *dRVVT 41.9 sec (0.0-47.0); BETA-2 MICROGLOBULIN, SERUM 2.1 mg/L (0.6-2.4)
== END 2019-06-01 23:59 | disposition home or self-care (01) ==
LOC: US 09:06
PROVIDERS: ATTEND Internal Medicine Hematology & Oncology
DX: E04.2 Nontoxic multinodular goiter (principal); D68.62 Lupus anticoagulant syndrome; R94.6 Abnormal results of thyroid function studies
CPT/HCPCS: 36415; 76536-TC; 80053-TC; 82232; 82728-TC; 83540-TC; 84439-TC; 84443-TC; 85025-TC; 85613; 85670; 85705; 85732; 86147; 86800

== ENCOUNTER 2019-08-30 07:32 | Outpatient (CLI) | payer BC ==
[2019-08-30 07:51] LABS: BASOPHILS % (AUTO) 0.3 % (0.0-2.0); EOSINOPHILS % (AUTO) 0.6 % (0.0-6.0); HEMATOCRIT 43 % (33-45); HEMOGLOBIN 14.5 g/dL (11.5-14.8); LYMPHOCYTES # (AUTO) 2.2 /CMM (0.8-4.8); LYMPHOCYTES % (AUTO) 25.3 % (20.0-44.0); MEAN CORPUSCULAR HGB CONC 34 g/dl (31.0-36.0); MEAN CORPUSCULAR VOLUME 88 fL (82-100); MONOCYTES # (AUTO) 0.6 /CMM (0.1-1.30); MONOCYTES % (AUTO) 7.4 % (2.0-12.0); NEUTROPHILS # (AUTO) 5.7 /CMM (1.8-8.9); NEUTROPHILS % (AUTO) 66.4 % (43.0-81.0); PLATELET COUNT (AUTO) 312 /CMM (150-450); RED BLOOD CELL COUNT(AUTO) 4.81 MIL/uL (4.0-5.2); WHITE BLOOD COUNT (AUTO) 8.5 K/uL (4.3-11.0)
[2019-08-30 08:26] LABS: ALBUMIN 3.8 g/dL (3.4-5.0); BILIRUBIN,TOTAL 0.4 mg/dL (0.2-1.0); CALCIUM, SERUM 8.6 mg/dL (8.5-10.1); CREATININE 0.9 mg/dL (0.6-1.3); POTASSIUM 3.7 mmol/L (3.5-5.1); TOTAL PROTEIN, SERUM 7.5 g/dL (6.4-8.2)
[2019-08-30 08:37] LABS: FREE T4 (FREE THYROXINE) 1.03 ng/dL (0.76-1.46); THYROID STIMULATING HORMONE 1.526 uIU/mL (0.358-3.74)
== END 2019-08-30 23:59 | disposition home or self-care (01) ==
LOC: LAB 07:32
PROVIDERS: ATTEND Internal Medicine Hematology & Oncology
DX: D68.61 Antiphospholipid syndrome (principal); E55.9 Vitamin D deficiency, unspecified
CPT/HCPCS: 36415; 80053-TC; 82728-TC; 83540-TC; 84439-TC; 84443-TC; 85025-TC; 86800

== ENCOUNTER 2019-09-01 09:49 | Outpatient (CLI) | payer BC | END 2019-09-01 23:59 | disposition home or self-care (01) | LOC: CT 09:49 | PROVIDERS: ATTEND Family Medicine | DX: J34.2 Deviated nasal septum (principal); H69.93 Unspecified Eustachian tube disorder, bilateral | CPT/HCPCS: 70486-TC ==

== ENCOUNTER 2019-12-08 09:07 | Outpatient (CLI) | payer BC ==
[2019-12-08 09:59] LABS: BASOPHILS # (AUTO) 0.1 /CMM (0.0-0.2); BASOPHILS % (AUTO) 0.9 % (0.0-2.0); EOSINOPHILS % (AUTO) 0.9 % (0.0-6.0); HEMATOCRIT 43 % (33-45); HEMOGLOBIN 14.7 g/dL (11.5-14.8); LYMPHOCYTES # (AUTO) 1.9 /CMM (0.8-4.8); LYMPHOCYTES % (AUTO) 28.2 % (20.0-44.0); MEAN CORPUSCULAR HGB CONC 34 g/dl (31.0-36.0); MEAN CORPUSCULAR VOLUME 88 fL (82-100); MONOCYTES # (AUTO) 0.6 /CMM (0.1-1.30); MONOCYTES % (AUTO) 9.5 % (2.0-12.0); NEUTROPHILS # (AUTO) 4.1 /CMM (1.8-8.9); NEUTROPHILS % (AUTO) 60.5 % (43.0-81.0); PLATELET COUNT (AUTO) 294 /CMM (150-450); RED BLOOD CELL COUNT(AUTO) 4.91 MIL/uL (4.0-5.2); WHITE BLOOD COUNT (AUTO) 6.8 K/uL (4.3-11.0)
[2019-12-08 10:09] LABS: ALBUMIN 3.6 g/dL (3.4-5.0); BILIRUBIN,TOTAL 0.3 mg/dL (0.2-1.0); CREATININE 0.8 mg/dL (0.6-1.3); POTASSIUM 4.2 mmol/L (3.5-5.1); TOTAL PROTEIN, SERUM 7.3 g/dL (6.4-8.2)
[2019-12-08 10:21] LABS: THYROID STIMULATING HORMONE 1.113 uIU/mL (0.358-3.74)
== END 2019-12-08 23:59 | disposition home or self-care (01) ==
LOC: US 09:07
PROVIDERS: ATTEND Internal Medicine Hematology & Oncology
DX: E04.2 Nontoxic multinodular goiter (principal); R94.6 Abnormal results of thyroid function studies
CPT/HCPCS: 36415; 76536-TC; 80053-TC; 82728-TC; 83540-TC; 84439-TC; 84443-TC; 85025-TC; 86800

== ENCOUNTER 2020-03-30 22:08 | Emergency (ER) | payer BC, OTHER ==
[~2020-03-30] VITALS: Ht 165.1 cm; Wt 81.6 kg
[2020-03-30] MEDS ORDERED: IV NS 0.9% 1,000 ML IV PRN (22:30)
--- NOTE | 2020-03-30 22:30 | NUR ---
PATIENT CAME TO ER BED 8 C/O "FEELING SICK FROM WORK. PATIENT STATES THAT SHE FEELS LIKE SHE HAS PALPITATION AT ONE MOMENT AND NO PALPITATIONS THE NEXT. STATES THAT SHE ATE BEFORE ARRIVING TO WORK. PATIENT STATES SHE MAY BE STRESSING HERSELF OUT. CURRENTLY DENIES PAIN, NAUSEA, OR VOMITING. AAOX4. NO SOB. BREATHING EVENLY AND UNLABORED ON ROOM AIR. CONNECTED TO SOFTWARE ENGINEER KERNEL.
--- NOTE | 2020-03-30 22:32 | NUR ---
BLOOD DRAWN AND SENT TO THE LAB.
[2020-03-30 22:37] LABS: BASOPHILS % (AUTO) 0.2 % (0.0-2.0); EOSINOPHILS % (AUTO) 0.9 % (0.0-6.0); HEMATOCRIT 45 % (33-45); HEMOGLOBIN 14.8 g/dL (11.5-14.8); LYMPHOCYTES # (AUTO) 1.3 /CMM (0.8-4.8); LYMPHOCYTES % (AUTO) 21.4 % (20.0-44.0); MEAN CORPUSCULAR HGB CONC 33 g/dl (31.0-36.0); MEAN CORPUSCULAR VOLUME 89 fL (82-100); MONOCYTES # (AUTO) 0.8 /CMM (0.1-1.30); MONOCYTES % (AUTO) 12.6 % (2.0-12.0); NEUTROPHILS % (AUTO) 64.9 % (43.0-81.0); PLATELET COUNT (AUTO) 216 /CMM (150-450); RED BLOOD CELL COUNT(AUTO) 5.03 MIL/uL (4.0-5.2); WHITE BLOOD COUNT (AUTO) 6.2 K/uL (4.3-11.0)
[2020-03-30 22:45] LABS: CALCIUM, SERUM 8.2 mg/dL (8.5-10.1); CARBON DIOXIDE 26 mmol/L (21-32); CHLORIDE 106 mmol/L (98-107); CREATININE 0.8 mg/dL (0.6-1.3); GLUCOSE 105 mg/dL (74-106); SODIUM SERUM 141 mmol/L (136-145); UREA NITROGEN, BLOOD 15 mg/dL (7-18)
--- NOTE | 2020-03-30 22:46 | NUR ---
Patient is resting comfortably in bed. Easily aroused. VSS.
--- NOTE | 2020-03-31 00:09 | NUR ---
COVID-19 SAMPLE COLLECTED AND SENT TO LAB.
[2020-03-31 01:21] VITALS: BP 109/76
--- NOTE | 2020-04-03 09:13 | NUR ---
covid result received from lab, patient called in number on file, left message to call back
== END 2020-03-31 01:21 | disposition home or self-care (01) ==
LOC: ER 22:13
DX: U07.1 COVID-19 (principal); R00.2 Palpitations; Z88.0 Allergy status to penicillin; R91.8 Other nonspecific abnormal finding of lung field; Z88.2 Allergy status to sulfonamides; Z79.899 Other long term (current) drug therapy; Z79.82 Long term (current) use of aspirin; R94.31 Abnormal electrocardiogram [ECG] [EKG]
CPT/HCPCS: 36415; 71045; 80048; 84484; 85025; 87635; 93005; 99285; J7030

== ENCOUNTER 2020-04-05 10:35 | Emergency (ER) | payer BC, OTHER ==
[~2020-04-05] VITALS: Ht 165.1 cm; Wt 83.5 kg
--- NOTE | 2020-04-05 10:45 | NUR ---
PT BIB SELF C/O NAUSEATED, WEAK AND FEELING FAINT SINCE WAKING UP THIS MORNING, PT IS + COVID, NOT IN RESPIRATORY DISTRESS, HOOKED TO LIABILITY ANALYST, KEPT RESTED AND COMFORTABLE, WILL CONTINUE TO MONITOR.
--- NOTE | 2020-04-05 10:50 | NUR ---
AT BEDSIDE FOR EVAL.
[2020-04-05] MEDS ORDERED: ONDANSETRON HCL/PF 4 MG/2 ML VIAL IVP ONE (11:00)
[2020-04-05] MEDS ORDERED: IV NS 0.9% 1,000 ML BAG IV ONE (11:00)
--- NOTE | 2020-04-05 11:00 | NUR ---
IV LINE ESTABLISHED BLOOD DRAWN AND SENT TO LAB.
[2020-04-05 11:12] LABS: BASOPHILS % (AUTO) 0.2 % (0.0-2.0); EOSINOPHILS % (AUTO) 0.8 % (0.0-6.0); HEMATOCRIT 42 % (33-45); HEMOGLOBIN 13.9 g/dL (11.5-14.8); LYMPHOCYTES % (AUTO) 23.4 % (20.0-44.0); MEAN CORPUSCULAR HGB CONC 33 g/dl (31.0-36.0); MEAN CORPUSCULAR VOLUME 89 fL (82-100); MONOCYTES # (AUTO) 0.6 /CMM (0.1-1.30); MONOCYTES % (AUTO) 14.2 % (2.0-12.0); NEUTROPHILS # (AUTO) 2.7 /CMM (1.8-8.9); NEUTROPHILS % (AUTO) 61.4 % (43.0-81.0); PLATELET COUNT (AUTO) 228 /CMM (150-450); RED BLOOD CELL COUNT(AUTO) 4.69 MIL/uL (4.0-5.2); WHITE BLOOD COUNT (AUTO) 4.4 K/uL (4.3-11.0)
[2020-04-05 11:20] LABS: CALCIUM, SERUM 8.1 mg/dL (8.5-10.1); CARBON DIOXIDE 27 mmol/L (21-32); CHLORIDE 107 mmol/L (98-107); CREATININE 0.9 mg/dL (0.6-1.3); GLUCOSE 104 mg/dL (74-106); POTASSIUM 3.5 mmol/L (3.5-5.1); SODIUM SERUM 142 mmol/L (136-145); UREA NITROGEN, BLOOD 9 mg/dL (7-18)
[2020-04-05] MEDS ORDERED: ATOR10TA PO (11:34)
[2020-04-05 11:38] LABS: ALANINE AMINOTRANSFERASE 33 U/L (12-78); ALBUMIN 3.1 g/dL (3.4-5.0); ALKALINE PHOSPHATASE 66 U/L (46-116); ASPARTATE AMINOTRANSFERASE 31 U/L (15-37); BILIRUBIN,DIRECT 0.1 mg/dL (0.0-0.2); BILIRUBIN,TOTAL 0.4 mg/dL (0.2-1.0); TOTAL PROTEIN, SERUM 6.7 g/dL (6.4-8.2)
[2020-04-05 13:18] VITALS: BP 119/72
--- NOTE | 2020-04-05 13:18 | NUR ---
IV removed. Catheter intact and site benign. Pressure and 4x4 applied to site. No bleeding noted. Patient discharged to home in stable condition. Written and verbal after care instructions given. Patient verbalizes understanding of instruction.
== END 2020-04-05 13:19 | disposition home or self-care (01) ==
LOC: ER 10:37
DX: U07.1 COVID-19 (principal); R42 Dizziness and giddiness; Z87.01 Personal history of pneumonia (recurrent); E04.1 Nontoxic single thyroid nodule; R00.2 Palpitations
CPT/HCPCS: 36415; 71045; 80048; 80076; 84484; 85025; 93005; 96361; 96374; 99285; J7030; J2405

== ENCOUNTER 2020-04-23 12:52 | Emergency (ER) | payer BC, OTHER ==
[~2020-04-23] VITALS: Ht 165.1 cm; Wt 65.8 kg
[~2020-04-23 12:52] MED LIST changes: +ATOR10TA PO; -SCOP1PAT TP
[2020-04-23 12:57] VITALS: BP 125/63
--- NOTE | 2020-04-23 13:00 | NUR ---
pt presented to the ER for a COVID 19 retest.
--- NOTE | 2020-04-24 22:27 | NUR ---
LAB CALLED REGARDING COVID (-) RESULT.
[2020-05-15] MEDS ORDERED: FLEC100T3 PO (15:03)
[2020-05-15] MEDS ORDERED: APIX5TAB PO (15:03)
== END 2020-04-23 14:09 | disposition home or self-care (01) ==
LOC: ER 12:55
DX: Z09 Encounter for follow-up examination after completed treatment for conditions other than malignant neoplasm (principal); Z86.19 Personal history of other infectious and parasitic diseases; Z87.01 Personal history of pneumonia (recurrent)
CPT/HCPCS: 99283; U0003

== ENCOUNTER 2020-05-01 12:38 | Outpatient (CLI) | payer BC, OTHER | END 2020-05-01 23:59 | disposition home or self-care (01) | LOC: RAD 12:38 | PROVIDERS: ATTEND Family Medicine | DX: J18.9 Pneumonia, unspecified organism (principal) | CPT/HCPCS: 71046 ==

== ENCOUNTER 2020-05-11 20:51 | Emergency (ER) | payer BC, OTHER ==
[~2020-05-11] VITALS: Ht 165.1 cm; Wt 81.6 kg
[2020-05-11] MEDS ORDERED: ONDANSETRON HCL/PF 4 MG/2 ML VIAL ONE (21:07)
--- NOTE | 2020-05-11 21:10 | NUR ---
BIB TO ER BED 16. AAOX4. NOT IN RESP DISTRESS, BREATHING EVEN AND UNLABORED. AMBUALTORY. CAME IN FOR LEFT SIDE CHEST PAIN NON RADIATING PRESSURE SENSATION STARTED 2049. PT STATES THAT SHE FELLS SOB, SATTING 98% ON RA. PT PLACED ON MONITOR. MD WAS AT BEDSIDE FOR EVAL.
[2020-05-11] MEDS: IV NS 0.9% 1,000 ML BAG IV ONE (21:19)
[2020-05-11] MEDS: ONDANSETRON HCL/PF 4 MG/2 ML VIAL IVP ONE (21:19)
[2020-05-11 21:20] LABS: BASOPHILS % (AUTO) 0.4 % (0.0-2.0); EOSINOPHILS % (AUTO) 1.2 % (0.0-6.0); HEMATOCRIT 43 % (33-45); HEMOGLOBIN 14.3 g/dL (11.5-14.8); LYMPHOCYTES # (AUTO) 2.9 /CMM (0.8-4.8); LYMPHOCYTES % (AUTO) 31.5 % (20.0-44.0); MEAN CORPUSCULAR HGB CONC 33 g/dl (31.0-36.0); MEAN CORPUSCULAR VOLUME 90 fL (82-100); MONOCYTES % (AUTO) 10.4 % (2.0-12.0); NEUTROPHILS # (AUTO) 5.3 /CMM (1.8-8.9); NEUTROPHILS % (AUTO) 56.5 % (43.0-81.0); PLATELET COUNT (AUTO) 308 /CMM (150-450); WHITE BLOOD COUNT (AUTO) 9.4 K/uL (4.3-11.0)
--- NOTE | 2020-05-11 21:21 | NUR ---
XRAY AT BEDSIDE.
[2020-05-11 21:37] LABS: CALCIUM, SERUM 8.9 mg/dL (8.5-10.1); CARBON DIOXIDE 27 mmol/L (21-32); CHLORIDE 104 mmol/L (98-107); CREATININE 0.9 mg/dL (0.6-1.3); GLUCOSE 110 mg/dL (74-106); POTASSIUM 3.6 mmol/L (3.5-5.1); SODIUM SERUM 138 mmol/L (136-145); UREA NITROGEN, BLOOD 17 mg/dL (7-18)
[2020-05-11 21:43] LABS: ALANINE AMINOTRANSFERASE 34 U/L (12-78); ALBUMIN 3.9 g/dL (3.4-5.0); ALKALINE PHOSPHATASE 67 U/L (46-116); ASPARTATE AMINOTRANSFERASE 24 U/L (15-37); BILIRUBIN,DIRECT 0.1 mg/dL (0.0-0.2); BILIRUBIN,TOTAL 0.3 mg/dL (0.2-1.0); TOTAL PROTEIN, SERUM 7.4 g/dL (6.4-8.2)
--- NOTE | 2020-05-11 22:20 | NUR ---
PT AMBULATED TO THE BATHROOM WITH A STEADY GAIT. PT STATED THAT SHE IS FEELING BETTER.
--- NOTE | 2020-05-11 22:37 | NUR ---
IV removed. Catheter intact and site benign. Pressure and 4x4 applied to site. No bleeding noted. Patient discharged to home in stable condition. Written and verbal after care instructions given. Patient verbalizes understanding of instruction. COVID 19 SWAB DONE AND SENT TO LAB. VSS. PT AMBULATED OUT WITH A STEADY GAIT.
[2020-05-11 22:38] VITALS: BP 111/84
[2020-05-15] MEDS ORDERED: APIX5TAB PO (15:03)
[2020-05-15] MEDS ORDERED: FLEC100T3 PO (15:03)
== END 2020-05-11 22:38 | disposition home or self-care (01) ==
LOC: ER 20:53
DX: R06.02 Shortness of breath (principal); R20.9 Unspecified disturbances of skin sensation; R55 Syncope and collapse; Z20.828 Contact with and (suspected) exposure to other viral communicable diseases; Z86.19 Personal history of other infectious and parasitic diseases; J98.11 Atelectasis; I51.7 Cardiomegaly; R03.0 Elevated blood-pressure reading, without diagnosis of hypertension
CPT/HCPCS: 36415; 71045; 80048; 80076; 84484; 85025; 85730; 96361; 96374; 99284; C9803; J2405; U0003

== ENCOUNTER 2020-05-14 20:46 | Inpatient (IN) | payer BC, OTHER ==
[~2020-05-14] VITALS: Ht 165.1 cm; Wt 83.0 kg
--- NOTE | 2020-05-14 21:15 | NUR ---
BIBS FROM HOME TO ER BED 5. AAOX4. NOT IN RESP DSITRESS, BREATHING EVEN AND UNLABORED. AMBULATORY. CAME IN FOR PALPITATION THAT STARTED 1930. DENIES CP NOR SOB. PLACED ON MONITOR. EKG DONE AT BEDSIDE. AWAITING MD FOR REYNALDO
[2020-05-14] MEDS ORDERED: DILTIAZEM HCL 25 MG IV IV ONE (21:30)
--- NOTE | 2020-05-14 21:45 | NUR ---
RECEIVED REPORT FROM CARSON SANCHEZ IN ER.
--- NOTE | 2020-05-14 21:50 | NUR ---
iv started on l ac 20g. blood drawn and given to label paster
[2020-05-14 22:05] LABS: BASOPHILS % (AUTO) 0.6 % (0.0-2.0); EOSINOPHILS % (AUTO) 0.7 % (0.0-6.0); HEMATOCRIT 44 % (33-45); HEMOGLOBIN 14.7 g/dL (11.5-14.8); LYMPHOCYTES # (AUTO) 1.9 /CMM (0.8-4.8); MEAN CORPUSCULAR HGB CONC 34 g/dl (31.0-36.0); MEAN CORPUSCULAR VOLUME 89 fL (82-100); MONOCYTES # (AUTO) 0.8 /CMM (0.1-1.30); MONOCYTES % (AUTO) 9.9 % (2.0-12.0); NEUTROPHILS # (AUTO) 5.4 /CMM (1.8-8.9); NEUTROPHILS % (AUTO) 65.8 % (43.0-81.0); PLATELET COUNT (AUTO) 312 /CMM (150-450); RED BLOOD CELL COUNT(AUTO) 4.93 MIL/uL (4.0-5.2); WHITE BLOOD COUNT (AUTO) 8.2 K/uL (4.3-11.0)
--- NOTE | 2020-05-14 22:12 | NUR ---
AT THE BED SIDE
[2020-05-14 22:13] LABS: CALCIUM, SERUM 8.9 mg/dL (8.5-10.1); CARBON DIOXIDE 28 mmol/L (21-32); CHLORIDE 104 mmol/L (98-107); CREATININE 0.9 mg/dL (0.6-1.3); GLUCOSE 115 mg/dL (74-106); POTASSIUM 3.5 mmol/L (3.5-5.1); SODIUM SERUM 141 mmol/L (136-145); UREA NITROGEN, BLOOD 20 mg/dL (7-18)
[2020-05-14] MEDS ORDERED: IV NS 0.9% 1,000 ML IV ONE (22:30)
[2020-05-14] MEDS ORDERED: DILTIAZEM HCL 50 MG IV IV ONE (22:30)
[2020-05-14] MEDS ORDERED: DILTIAZEM HCL 25 MG IV ONE (22:40)
--- NOTE | 2020-05-14 23:00 | NUR ---
COVID TEST SENT TO LAB
--- NOTE | 2020-05-14 23:35 | NUR ---
REPORT GIVEN TO YONG BYRD
[2020-05-15] MEDS ORDERED: IV NS 0.9% 1,000 ML IV PRN (00:13)
--- NOTE | 2020-05-15 00:24 | NUR ---
TELE/OPENING RECEIVED PATIENT A/O X4 NO SIGN OF ANY DISTRESS. PATIENT IS ABLE TO AMBULATE FROM GURNEY TO BED WITH NO TROUBLE. PATIENT IS ON ROOM AIR SATURATING AT 98% WITH NO COMPLAINTS OF ANY SOB. PATIENT ON THE MONITOR IS SHOWING AFIB UNCONTROLLED WITH HR GOING TO 140'S AT REST HR IS AT 85. PATIENT SAYS SHE DOES NOT HAVE ANY PALPITATIONS AT THE MOMENT AND THAT THE MEDICATION GIVEN IN ER HELPED. ALL SKIN INTACT. CALL LIGHT WITHIN IN REACH. WILL CONTINUE TO MONITOR PATIENT THROUGHOUT SHIFT.
[2020-05-15 00:30] VITALS: BP 116/76
[2020-05-15] MEDS ORDERED: MAG HYDROX/AL HYDROX/SIMETH 30 ML UDC PO PRN (00:30)
[2020-05-15] MEDS ORDERED: ENOXAPARIN SODIUM 40 MG/0.4 ML DISP.SYRIN SQ SCH (00:30)
[2020-05-15] MEDS ORDERED: Z GUARD REMEDY 2 OZ OINT TP PRN (00:30)
[2020-05-15] MEDS ORDERED: ACETAMINOPHEN 325 MG TABLET PO PRN (00:30)
[2020-05-15] MEDS ORDERED: ONDANSETRON HCL/PF 4 MG/2 ML VIAL IVP PRN (00:30)
[2020-05-15] MEDS ORDERED: MAGNESIUM HYDROXIDE 30 ML UDC PO PRN (00:30)
--- NOTE | 2020-05-15 00:31 | NUR ---
PT TRANSFERED PER ACLS PROTOCOL
[2020-05-15 01:01] LABS: C-REACTIVE PROTEIN 0.5 mg/dL (0.0-0.9)
[2020-05-15 04:00] VITALS: BP 91/64
[2020-05-15 06:31] LABS: BASOPHILS % (AUTO) 0.5 % (0.0-2.0); EOSINOPHILS % (AUTO) 0.6 % (0.0-6.0); HEMATOCRIT 43 % (33-45); HEMOGLOBIN 14.6 g/dL (11.5-14.8); LYMPHOCYTES # (AUTO) 2.5 /CMM (0.8-4.8); LYMPHOCYTES % (AUTO) 31.4 % (20.0-44.0); MEAN CORPUSCULAR HGB CONC 34 g/dl (31.0-36.0); MEAN CORPUSCULAR VOLUME 88 fL (82-100); MONOCYTES # (AUTO) 0.8 /CMM (0.1-1.30); MONOCYTES % (AUTO) 10.7 % (2.0-12.0); NEUTROPHILS # (AUTO) 4.5 /CMM (1.8-8.9); NEUTROPHILS % (AUTO) 56.8 % (43.0-81.0); PLATELET COUNT (AUTO) 308 /CMM (150-450); RED BLOOD CELL COUNT(AUTO) 4.92 MIL/uL (4.0-5.2); WHITE BLOOD COUNT (AUTO) 7.8 K/uL (4.3-11.0)
[2020-05-15 06:32] LABS: CALCIUM, SERUM 8.6 mg/dL (8.5-10.1); CREATININE 0.9 mg/dL (0.6-1.3); MAGNESIUM 2.4 mg/dL (1.8-2.4); POTASSIUM 3.7 mmol/L (3.5-5.1)
[2020-05-15 06:44] LABS: THYROID STIMULATING HORMONE 1.28 uIU/mL (0.358-3.74)
--- NOTE | 2020-05-15 07:15 | NUR ---
RN NOTES RECEIVED PATIENT A/O X4, ON RA, RESPIRATION EVEN AND UNLABORED, NO SOB NOTED, ON TELE A.FIB. HR IN 70'S , RAC IV SITE G 20 CLEAN, DRY AND INTACT, SR UP x3, CALL LIGHT WITHIN EASY REACH, BED LOCKED AND IN LOWEST POSITION, CONTINUE TO MONITOR .
[2020-05-15] MEDS ORDERED: PANTOPRAZOLE 40 MG TABLET.DR PO SCH (07:30)
[2020-05-15 08:00] VITALS: BP 97/74
[2020-05-15] MEDS: APIXABAN 5 MG TABLET PO SCH ×2 (08:42→16:18)
[2020-05-15] MEDS ORDERED: ATORVASTATIN 10 MG TABLET PO SCH (09:00)
[2020-05-15] MEDS ORDERED: CHOLECALCIFEROL 1,000 UNIT TABLET (VIT D3) PO SCH (09:00)
[2020-05-15] MEDS ORDERED: METOPROLOL TARTRATE 50 MG TABLET PO SCH (09:00)
[2020-05-15] MEDS ORDERED: DILTIAZEM HCL CD 120 MG PO SCH (09:00)
[2020-05-15] MEDS ORDERED: ASPIRIN EC 81 MG TABLET.DR PO SCH (09:00)
--- NOTE | 2020-05-15 09:00 | NUR ---
RN NOTES PT HR IS SR 60'S , DR. UBALDO MCKEON, CONTINUE TO MONITOR.
[2020-05-15] MEDS ORDERED: FLECAINIDE ACETATE (100 MG) 100 MG TABLET PO SCH (10:30)
[2020-05-15 12:00] VITALS: BP 131/82
--- NOTE | 2020-05-15 12:00 | NUR ---
RN NOTES PT STABLE, NO DISTRESS NOTED , HR SR AT THIS TIME,
[2020-05-15] MEDS ORDERED: APIX5TAB PO (15:03)
[2020-05-15] MEDS ORDERED: FLEC100T3 PO (15:03)
[2020-05-15 16:00] VITALS: BP 105/62
--- NOTE | 2020-05-15 16:00 | NUR ---
RN NOTES PT WALKING AROUND IN HER ROOM , DENIES ANY PALPITATION, NO DISTRESS NOTED, CONTINUE TO MONITOR .
--- NOTE | 2020-05-15 18:50 | NUR ---
RN NOTES DISCHARGE INSTRUCTION GIVEN ,PT VERBALIZES UNDERSTANDING , IV SITE D/CRYSTAL , VSS STABLE, PT LEFT THE FLOOR AMBULATORY TO MAIN ENTRANCE ACCOMPANIED BY STAFF MEMBER IN STABLE CONDITION.
== END 2020-05-15 19:00 | disposition home or self-care (01) | DRG 309 ==
LOC: ER 20:47 → TELE1 23:08
PROVIDERS: ADMIT Registered Nurse; ATTEND Nurse Practitioner Acute Care
DX: I48.0 Paroxysmal atrial fibrillation (principal); B15.9 Hepatitis A without hepatic coma; F41.9 Anxiety disorder, unspecified; I73.00 Raynaud's syndrome without gangrene; E66.9 Obesity, unspecified; Z68.30 Body mass index [BMI] 30.0-30.9, adult; Z88.0 Allergy status to penicillin; Z88.2 Allergy status to sulfonamides; E86.0 Dehydration; R42 Dizziness and giddiness; Z86.19 Personal history of other infectious and parasitic diseases; R79.89 Other specified abnormal findings of blood chemistry
CPT/HCPCS: 36415; 80048-TC; 80061-TC; 82728-TC; 83615-TC; 83735-TC; 84100-TC; 84443-TC; 84484-TC; 85025-TC; 85378-TC; 86140-TC; 87081-TC; 93307-TC; G0378; J1650; J3490; J7030; U0003-CS

== ENCOUNTER 2020-06-20 09:07 | Outpatient (CLI) | payer BC, OTHER ==
[~2020-06-20 09:07] MED LIST changes: +APIX5TAB PO; -ASPI-605 PO; +FLEC100T3 PO
[2020-06-20 11:27] LABS: BASOPHILS % (AUTO) 0.4 % (0.0-2.0); EOSINOPHILS % (AUTO) 0.8 % (0.0-6.0); HEMATOCRIT 43 % (33-45); LYMPHOCYTES # (AUTO) 1.6 /CMM (0.8-4.8); MEAN CORPUSCULAR HGB CONC 33 g/dl (31.0-36.0); MEAN CORPUSCULAR VOLUME 90 fL (82-100); MONOCYTES # (AUTO) 0.5 /CMM (0.1-1.30); MONOCYTES % (AUTO) 9.4 % (2.0-12.0); NEUTROPHILS # (AUTO) 3.4 /CMM (1.8-8.9); NEUTROPHILS % (AUTO) 61.4 % (43.0-81.0); PLATELET COUNT (AUTO) 297 /CMM (150-450); RED BLOOD CELL COUNT(AUTO) 4.75 MIL/uL (4.0-5.2); WHITE BLOOD COUNT (AUTO) 5.5 K/uL (4.3-11.0)
[2020-06-20 12:25] LABS: ALBUMIN 3.6 g/dL (3.4-5.0); BILIRUBIN,TOTAL 0.5 mg/dL (0.2-1.0); CREATININE 0.8 mg/dL (0.6-1.3); POTASSIUM 4.1 mmol/L (3.5-5.1); THYROID STIMULATING HORMONE 0.811 uIU/mL (0.358-3.74); TOTAL PROTEIN, SERUM 7.1 g/dL (6.4-8.2)
[2020-06-20 12:56] LABS: BILIRUBIN,URINE NEGATIVE (NEGATIVE); BLOOD, URINE NEGATIVE Ery/uL (NEGATIVE); COLOR,URINE YELLOW (YELLOW); KETONES,URINE NEGATIVE (NEGATIVE); LEUKOCYTE ESTERASE ,URINE NEGATIVE (NEGATIVE); NITRITE, URINE POSITIVE (NEGATIVE); PH,URINE 6.5 (5.0-8.0); PROTEIN,URINE NEGATIVE (NEGATIVE); UGLUCOSE NEGATIVE (NEGATIVE); UROBILINOGEN,URINE 0.2 EU/dL (0.2)
[2020-06-20 13:03] LABS: APPEARANCE,URINE SLIGHTLY HAZY (CLEAR)
[2020-06-20 13:31] LABS: BACTERIA,URINE Few /HPF (None Seen); RBC,URINE 0-1 /HPF (0-2); SQUAMOUS EPITHELIAL CELL,UR Few /HPF (None Seen)
== END 2020-06-20 23:59 | disposition home or self-care (01) ==
LOC: US 09:07
PROVIDERS: ATTEND Internal Medicine Hematology & Oncology
DX: E04.2 Nontoxic multinodular goiter (principal); N39.0 Urinary tract infection, site not specified; D64.9 Anemia, unspecified
CPT/HCPCS: 36415; 76536-TC; 80053-TC; 81000-TC; 82728-TC; 83540-TC; 84439-TC; 84443-TC; 85025-TC; 86800; 87086-TC

== ENCOUNTER 2020-07-04 08:03 | Outpatient (CLI) | payer BC, OTHER ==
[2020-07-04 09:30] LABS: CALCIUM, SERUM 8.9 mg/dL (8.5-10.1); CREATININE 0.7 mg/dL (0.6-1.3); POTASSIUM 3.9 mmol/L (3.5-5.1)
[2020-07-04] MEDS ORDERED: IOHEXOL-350 100 ML VIAL IV ONE (09:36)
[2020-07-04] MEDS ORDERED: CT SWABBABLE VALVE TRANS SET 1 EA INFUS.SET MC ONE (09:37)
[2020-07-04] MEDS ORDERED: IV NS 0.9% 250 ML IV ONE (09:37)
== END 2020-07-04 23:59 | disposition home or self-care (01) ==
LOC: CARD 08:03
PROVIDERS: ATTEND Family Medicine
DX: I35.8 Other nonrheumatic aortic valve disorders (principal); K57.90 Diverticulosis of intestine, part unspecified, without perforation or abscess without bleeding
CPT/HCPCS: 36415; 71275; 80048; 93307; J7050; Q9967

== ENCOUNTER 2020-08-15 07:49 | Outpatient (CLI) | payer BC, OTHER ==
[2020-08-15 08:44] LABS: BASOPHILS % (AUTO) 0.7 % (0.0-2.0); EOSINOPHILS % (AUTO) 0.6 % (0.0-6.0); HEMATOCRIT 42 % (33-45); HEMOGLOBIN 14.1 g/dL (11.5-14.8); LYMPHOCYTES # (AUTO) 1.8 /CMM (0.8-4.8); LYMPHOCYTES % (AUTO) 28.9 % (20.0-44.0); MEAN CORPUSCULAR HGB CONC 33 g/dl (31.0-36.0); MEAN CORPUSCULAR VOLUME 90 fL (82-100); MONOCYTES # (AUTO) 0.6 /CMM (0.1-1.30); MONOCYTES % (AUTO) 9.4 % (2.0-12.0); NEUTROPHILS # (AUTO) 3.7 /CMM (1.8-8.9); NEUTROPHILS % (AUTO) 60.4 % (43.0-81.0); PLATELET COUNT (AUTO) 260 /CMM (150-450); RED BLOOD CELL COUNT(AUTO) 4.74 MIL/uL (4.0-5.2); WHITE BLOOD COUNT (AUTO) 6.1 K/uL (4.3-11.0)
[2020-08-15 09:21] LABS: ALBUMIN 3.7 g/dL (3.4-5.0); BILIRUBIN,TOTAL 0.3 mg/dL (0.2-1.0); CALCIUM, SERUM 8.7 mg/dL (8.5-10.1); CREATININE 0.8 mg/dL (0.6-1.3); TOTAL PROTEIN, SERUM 7.3 g/dL (6.4-8.2)
== END 2020-08-15 23:59 | disposition home or self-care (01) ==
LOC: LAB 07:49
PROVIDERS: ATTEND Internal Medicine Hematology & Oncology
DX: I48.0 Paroxysmal atrial fibrillation (principal); E04.1 Nontoxic single thyroid nodule; D68.61 Antiphospholipid syndrome
CPT/HCPCS: 36415; 80053-TC; 85025-TC; 85378-TC

== ENCOUNTER 2020-10-10 08:03 | Outpatient (CLI) | payer BC, OTHER ==
[2020-10-10 09:27] LABS: BASOPHILS % (AUTO) 0.5 % (0.0-2.0); EOSINOPHILS % (AUTO) 0.6 % (0.0-6.0); HEMATOCRIT 42 % (33-45); LYMPHOCYTES # (AUTO) 1.9 /CMM (0.8-4.8); LYMPHOCYTES % (AUTO) 26.1 % (20.0-44.0); MEAN CORPUSCULAR HGB CONC 34 g/dl (31.0-36.0); MEAN CORPUSCULAR VOLUME 90 fL (82-100); MONOCYTES # (AUTO) 0.5 /CMM (0.1-1.30); MONOCYTES % (AUTO) 7.6 % (2.0-12.0); NEUTROPHILS # (AUTO) 4.7 /CMM (1.8-8.9); NEUTROPHILS % (AUTO) 65.2 % (43.0-81.0); PLATELET COUNT (AUTO) 287 /CMM (150-450); RED BLOOD CELL COUNT(AUTO) 4.65 MIL/uL (4.0-5.2); WHITE BLOOD COUNT (AUTO) 7.2 K/uL (4.3-11.0)
[2020-10-10 09:28] LABS: BILIRUBIN,URINE NEGATIVE (NEGATIVE); BLOOD, URINE TRACE-INTA Ery/uL (NEGATIVE); COLOR,URINE YELLOW (YELLOW); LEUKOCYTE ESTERASE ,URINE NEGATIVE (NEGATIVE); NITRITE, URINE NEGATIVE (NEGATIVE); PROTEIN,URINE NEGATIVE (NEGATIVE); UGLUCOSE NEGATIVE (NEGATIVE); UROBILINOGEN,URINE 0.2 EU/dL (0.2)
[2020-10-10 09:34] LABS: BACTERIA,URINE Rare /HPF (None Seen); RBC,URINE 0-2 /HPF (0-2); SQUAMOUS EPITHELIAL CELL,UR Rare /HPF (None Seen); WBC,URINE 0-2 /HPF (0-3)
[2020-10-10 09:49] LABS: ALBUMIN 3.7 g/dL (3.4-5.0); BILIRUBIN,TOTAL 0.3 mg/dL (0.2-1.0); CALCIUM, SERUM 8.6 mg/dL (8.5-10.1); CREATININE 0.8 mg/dL (0.6-1.3); POTASSIUM 3.9 mmol/L (3.5-5.1); TOTAL PROTEIN, SERUM 7.4 g/dL (6.4-8.2)
[2020-10-10 09:56] LABS: FREE T4 (FREE THYROXINE) 1.08 ng/dL (0.76-1.46); THYROID STIMULATING HORMONE 0.798 uIU/mL (0.358-3.74)
== END 2020-10-10 23:59 | disposition home or self-care (01) ==
LOC: LAB 08:03
PROVIDERS: ATTEND Family Medicine
DX: E55.9 Vitamin D deficiency, unspecified (principal); I48.91 Unspecified atrial fibrillation; Z00.01 Encounter for general adult medical examination with abnormal findings; Z79.899 Other long term (current) drug therapy
CPT/HCPCS: 36415; 80053-TC; 80061-TC; 81001; 82306; 84439-TC; 84443-TC; 85025-TC

== ENCOUNTER 2020-11-07 08:36 | Outpatient (CLI) | payer BC, OTHER | END 2020-11-07 23:59 | disposition home or self-care (01) | LOC: LAB 08:36 | PROVIDERS: ATTEND Family Medicine | DX: Z75.3 Unavailability and inaccessibility of health-care facilities (principal) ==

== ENCOUNTER 2021-01-02 08:22 | Outpatient (CLI) | payer BC, OTHER | END 2021-01-02 23:59 | disposition home or self-care (01) | LOC: RAD 08:22 | PROVIDERS: ATTEND Family Medicine | DX: M25.512 Pain in left shoulder (principal); M25.511 Pain in right shoulder | CPT/HCPCS: 73000-TC ==

== ENCOUNTER 2021-02-27 07:54 | Outpatient (CLI) | payer BC, OTHER ==
[2021-02-27 08:56] LABS: BASOPHILS % (AUTO) 0.2 % (0.0-2.0); EOSINOPHILS % (AUTO) 0.6 % (0.0-6.0); HEMATOCRIT 43 % (33-45); HEMOGLOBIN 14.2 g/dL (11.5-14.8); LYMPHOCYTES # (AUTO) 1.6 /CMM (0.8-4.8); MEAN CORPUSCULAR HGB CONC 33 g/dl (31.0-36.0); MEAN CORPUSCULAR VOLUME 89 fL (82-100); MONOCYTES # (AUTO) 0.6 /CMM (0.1-1.30); MONOCYTES % (AUTO) 9.1 % (2.0-12.0); NEUTROPHILS # (AUTO) 4.3 /CMM (1.8-8.9); NEUTROPHILS % (AUTO) 66.1 % (43.0-81.0); PLATELET COUNT (AUTO) 278 /CMM (150-450); WHITE BLOOD COUNT (AUTO) 6.5 K/uL (4.3-11.0)
[2021-02-27 11:14] LABS: ALBUMIN 3.8 g/dL (3.4-5.0); BILIRUBIN,TOTAL 0.4 mg/dL (0.2-1.0); CALCIUM, SERUM 8.8 mg/dL (8.5-10.1); TOTAL PROTEIN, SERUM 7.3 g/dL (6.4-8.2)
[2021-02-27 15:19] LABS: CREATININE 0.8 mg/dL (0.6-1.3)
== END 2021-02-27 23:59 | disposition home or self-care (01) ==
LOC: LAB 07:54
PROVIDERS: ATTEND Internal Medicine Hematology & Oncology
DX: D64.9 Anemia, unspecified (principal); I48.91 Unspecified atrial fibrillation
CPT/HCPCS: 36415; 80053-TC; 85025-TC; 85378-TC

== ENCOUNTER 2021-07-22 08:21 | Outpatient (CLI) | payer BC, OTHER ==
[2021-07-22 09:21] LABS: BASOPHILS % (AUTO) 0.4 % (0.0-2.0); EOSINOPHILS % (AUTO) 0.6 % (0.0-6.0); HEMATOCRIT 41 % (33-45); LYMPHOCYTES # (AUTO) 1.7 K/uL (0.8-4.8); LYMPHOCYTES % (AUTO) 24.1 % (20.0-44.0); MEAN CORPUSCULAR HGB CONC 34 g/dl (31.0-36.0); MEAN CORPUSCULAR VOLUME 90 fL (82-100); MONOCYTES # (AUTO) 0.6 K/uL (0.1-1.30); MONOCYTES % (AUTO) 8.5 % (2.0-12.0); NEUTROPHILS # (AUTO) 4.8 K/uL (1.8-8.9); NEUTROPHILS % (AUTO) 66.4 % (43.0-81.0); PLATELET COUNT (AUTO) 279 K/uL (150-450); RED BLOOD CELL COUNT(AUTO) 4.61 MIL/uL (4.0-5.2); WHITE BLOOD COUNT (AUTO) 7.2 K/uL (4.3-11.0)
[2021-07-22 10:00] LABS: ALBUMIN 3.9 g/dL (3.4-5.0); BILIRUBIN,TOTAL 0.4 mg/dL (0.2-1.0); CALCIUM, SERUM 8.8 mg/dL (8.5-10.1); CREATININE 0.8 mg/dL (0.6-1.3); POTASSIUM 4.1 mmol/L (3.5-5.1); TOTAL PROTEIN, SERUM 7.6 g/dL (6.4-8.2)
== END 2021-07-22 23:59 | disposition home or self-care (01) ==
LOC: LAB 08:21
PROVIDERS: ATTEND Internal Medicine Hematology & Oncology
DX: I10 Essential (primary) hypertension (principal); E55.9 Vitamin D deficiency, unspecified; I48.0 Paroxysmal atrial fibrillation; E04.1 Nontoxic single thyroid nodule; D68.61 Antiphospholipid syndrome; M19.90 Unspecified osteoarthritis, unspecified site
CPT/HCPCS: 80053-TC; 85025-TC; 85378-TC

== ENCOUNTER 2021-10-02 08:02 | Outpatient (CLI) | payer BC, OTHER ==
[2021-10-02 08:39] LABS: BASOPHILS % (AUTO) 0.5 % (0.0-2.0); HEMATOCRIT 43 % (33-45); HEMOGLOBIN 14.3 g/dL (11.5-14.8); LYMPHOCYTES # (AUTO) 1.6 K/uL (0.8-4.8); LYMPHOCYTES % (AUTO) 25.3 % (20.0-44.0); MEAN CORPUSCULAR HGB CONC 33 g/dl (31.0-36.0); MEAN CORPUSCULAR VOLUME 91 fL (82-100); MONOCYTES # (AUTO) 0.7 K/uL (0.1-1.30); MONOCYTES % (AUTO) 10.8 % (2.0-12.0); NEUTROPHILS # (AUTO) 3.8 K/uL (1.8-8.9); NEUTROPHILS % (AUTO) 62.4 % (43.0-81.0); PLATELET COUNT (AUTO) 275 K/uL (150-450); RED BLOOD CELL COUNT(AUTO) 4.74 MIL/uL (4.0-5.2); WHITE BLOOD COUNT (AUTO) 6.2 K/uL (4.3-11.0)
[2021-10-02 09:15] LABS: ALBUMIN 3.8 g/dL (3.4-5.0); BILIRUBIN,TOTAL 0.4 mg/dL (0.2-1.0); CALCIUM, SERUM 8.7 mg/dL (8.5-10.1); CREATININE 0.7 mg/dL (0.6-1.3); POTASSIUM 4.3 mmol/L (3.5-5.1); TOTAL PROTEIN, SERUM 7.5 g/dL (6.4-8.2)
== END 2021-10-02 23:59 | disposition home or self-care (01) ==
LOC: LAB 08:02
PROVIDERS: ATTEND Internal Medicine Hematology & Oncology
DX: I48.91 Unspecified atrial fibrillation (principal); D75.1 Secondary polycythemia
CPT/HCPCS: 36415; 80053-TC; 82607-TC; 85025-TC; 85378-TC

== ENCOUNTER 2021-10-03 00:02 | Emergency (ER) | payer BC, OTHER ==
[~2021-10-03] VITALS: Ht 165.1 cm; Wt 79.8 kg
--- NOTE | 2021-10-03 00:56 | NUR ---
COVID, FLU, STREP, SWABS COLLECTEC AND SENT TO LAB
--- NOTE | 2021-10-03 02:34 | NUR ---
MEDICALLY STABLE FOR D/C PER MD, Patient discharged to home in stable condition. Written and verbal after care instructions given. Patient verbalizes understanding of instruction.
[2021-10-03 02:35] VITALS: BP 134/89
== END 2021-10-03 02:35 | disposition home or self-care (01) ==
LOC: ER 00:03
DX: B34.9 Viral infection, unspecified (principal); Z20.822 Contact with and (suspected) exposure to COVID-19; Z86.16 Personal history of COVID-19; Z88.0 Allergy status to penicillin; Z88.2 Allergy status to sulfonamides; Z79.899 Other long term (current) drug therapy; R03.0 Elevated blood-pressure reading, without diagnosis of hypertension
CPT/HCPCS: 87070; 87426; 87804; 87880; 99283; C9803; U0003; 86403-TC

== ENCOUNTER 2022-01-16 07:34 | Outpatient (CLI) | payer BC, OTHER ==
[2022-01-16 08:13] LABS: BASOPHILS % (AUTO) 0.6 % (0.0-2.0); EOSINOPHILS % (AUTO) 0.7 % (0.0-6.0); HEMATOCRIT 42 % (33-45); LYMPHOCYTES # (AUTO) 1.8 K/uL (0.8-4.8); LYMPHOCYTES % (AUTO) 26.7 % (20.0-44.0); MEAN CORPUSCULAR HGB CONC 33 g/dl (31.0-36.0); MEAN CORPUSCULAR VOLUME 88 fL (82-100); MONOCYTES # (AUTO) 0.5 K/uL (0.1-1.30); MONOCYTES % (AUTO) 7.1 % (2.0-12.0); NEUTROPHILS # (AUTO) 4.4 K/uL (1.8-8.9); NEUTROPHILS % (AUTO) 64.9 % (43.0-81.0); PLATELET COUNT (AUTO) 304 K/uL (150-450); RED BLOOD CELL COUNT(AUTO) 4.79 MIL/uL (4.0-5.2); WHITE BLOOD COUNT (AUTO) 6.8 K/uL (4.3-11.0)
[2022-01-16 14:47] LABS: ALBUMIN 3.8 g/dL (3.4-5.0); BILIRUBIN,TOTAL 0.3 mg/dL (0.2-1.0); CALCIUM, SERUM 8.5 mg/dL (8.5-10.1); CREATININE 0.8 mg/dL (0.6-1.3); POTASSIUM 3.8 mmol/L (3.5-5.1); TOTAL PROTEIN, SERUM 7.7 g/dL (6.4-8.2)
[2022-01-17 17:06] LABS: *THROMBIN TIME 17.5 sec (0.0-23.0); *dPT CONFIRM RATIO 0.92 Ratio (0.00-1.34); *dRVVT 27.2 sec (0.0-47.0)
== END 2022-01-16 23:59 | disposition home or self-care (01) ==
LOC: LAB 07:34
PROVIDERS: ATTEND Internal Medicine Hematology & Oncology
DX: I48.91 Unspecified atrial fibrillation (principal); D75.1 Secondary polycythemia; Z79.01 Long term (current) use of anticoagulants
CPT/HCPCS: 36415; 80053-TC; 85025-TC; 85378-TC; 85613; 85670; 85705; 85732

== ENCOUNTER 2022-04-30 08:15 | Outpatient (CLI) | payer BC, OTHER ==
[2022-04-30 09:09] LABS: BASOPHILS % (AUTO) 0.3 % (0.0-2.0); EOSINOPHILS % (AUTO) 0.8 % (0.0-6.0); HEMATOCRIT 40 % (33-45); HEMOGLOBIN 13.5 g/dL (11.5-14.8); LYMPHOCYTES # (AUTO) 1.6 K/uL (0.8-4.8); LYMPHOCYTES % (AUTO) 22.3 % (20.0-44.0); MEAN CORPUSCULAR HGB CONC 34 g/dl (31.0-36.0); MEAN CORPUSCULAR VOLUME 88 fL (82-100); MONOCYTES # (AUTO) 0.8 K/uL (0.1-1.30); NEUTROPHILS # (AUTO) 4.7 K/uL (1.8-8.9); NEUTROPHILS % (AUTO) 65.6 % (43.0-81.0); PLATELET COUNT (AUTO) 279 K/uL (150-450); RED BLOOD CELL COUNT(AUTO) 4.57 MIL/uL (4.0-5.2); WHITE BLOOD COUNT (AUTO) 7.2 K/uL (4.3-11.0)
[2022-04-30 10:22] LABS: ALBUMIN 3.6 g/dL (3.4-5.0); BILIRUBIN,TOTAL 0.3 mg/dL (0.2-1.0); CALCIUM, SERUM 8.5 mg/dL (8.5-10.1); POTASSIUM 4.2 mmol/L (3.5-5.1); TOTAL PROTEIN, SERUM 7.2 g/dL (6.4-8.2)
[2022-04-30 11:10] LABS: CREATININE 0.8 mg/dL (0.6-1.3)
== END 2022-04-30 23:59 | disposition home or self-care (01) ==
LOC: LAB 08:15
PROVIDERS: ATTEND Internal Medicine Hematology & Oncology
DX: I48.91 Unspecified atrial fibrillation (principal); D75.1 Secondary polycythemia; D68.62 Lupus anticoagulant syndrome
CPT/HCPCS: 36415; 80053-TC; 82607-TC; 85025-TC; 85378-TC

== ENCOUNTER 2022-09-02 07:40 | Emergency (ER) | payer BC, OTHER ==
[~2022-09-02] VITALS: Ht 165.1 cm; Wt 79.8 kg
--- NOTE | 2022-09-02 07:48 | NUR ---
PATIENT BIBSELF C/O PALPITATIONS STARTED AROUND 5 AM. PATIENT IS A/O X 4, RR EVEN AND UNLABORED NO SOB. PATIENT TAKEN TO ER BED 09. PATIENT CONNECTED TO CARDIAC AND POX MONITOR.
--- NOTE | 2022-09-02 07:58 | NUR ---
IV ESTABLISHED R AC 20G. LABS DRAWN AND COLLECTED AT BEDSIDE.
[2022-09-02] MEDS ORDERED: FLECAINIDE ACETATE (100 MG) 100 MG TABLET PO STA (08:01)
--- NOTE | 2022-09-02 08:03 | NUR ---
X RAY AT BEDSIDE
[2022-09-02 08:09] LABS: BASOPHILS % (AUTO) 0.4 % (0.0-2.0); HEMATOCRIT 44 % (33-45); HEMOGLOBIN 14.7 g/dL (11.5-14.8); LYMPHOCYTES # (AUTO) 1.2 K/uL (0.8-4.8); LYMPHOCYTES % (AUTO) 22.7 % (20.0-44.0); MEAN CORPUSCULAR HGB CONC 33 g/dl (31.0-36.0); MEAN CORPUSCULAR VOLUME 88 fL (82-100); MONOCYTES # (AUTO) 0.6 K/uL (0.1-1.30); MONOCYTES % (AUTO) 10.8 % (2.0-12.0); NEUTROPHILS # (AUTO) 3.3 K/uL (1.8-8.9); NEUTROPHILS % (AUTO) 65.1 % (43.0-81.0); PLATELET COUNT (AUTO) 247 K/uL (150-450); RED BLOOD CELL COUNT(AUTO) 4.97 MIL/uL (4.0-5.2); WHITE BLOOD COUNT (AUTO) 5.1 K/uL (4.3-11.0)
[2022-09-02 08:22] LABS: CALCIUM, SERUM 8.7 mg/dL (8.5-10.1); CARBON DIOXIDE 27 mmol/L (21-32); CHLORIDE 107 mmol/L (98-107); CREATININE 0.8 mg/dL (0.6-1.3); GLUCOSE 112 mg/dL (74-106); POTASSIUM 3.8 mmol/L (3.5-5.1); SODIUM SERUM 141 mmol/L (136-145); UREA NITROGEN, BLOOD 16 mg/dL (7-18)
[2022-09-02 11:21] LABS: MAGNESIUM 2.2 mg/dL (1.8-2.4); PHOSPHORUS 4.2 mg/dL (2.5-4.9)
[2022-09-02 17:19] VITALS: BP 136/79
== END 2022-09-02 17:21 | disposition home or self-care (01) ==
LOC: ER 07:42
DX: I48.0 Paroxysmal atrial fibrillation (principal); E78.5 Hyperlipidemia, unspecified; I48.91 Unspecified atrial fibrillation; Z86.16 Personal history of COVID-19; Z88.0 Allergy status to penicillin; Z88.2 Allergy status to sulfonamides; Z79.899 Other long term (current) drug therapy
CPT/HCPCS: 36415; 71045-TC; 80048-TC; 83735-TC; 84100-TC; 84484-TC; 85025-TC

== ENCOUNTER 2022-10-01 09:04 | Outpatient (CLI) | payer BC | END 2022-10-01 23:59 | disposition home or self-care (01) | LOC: US 09:04 | PROVIDERS: ATTEND Family Medicine | DX: E04.2 Nontoxic multinodular goiter (principal); K63.89 Other specified diseases of intestine; N85.8 Other specified noninflammatory disorders of uterus; K80.20 Calculus of gallbladder without cholecystitis without obstruction | CPT/HCPCS: 76536-TC; 76705-TC; 76856-TC ==

== ENCOUNTER → 2022-10-14 | Outpatient (CLI) | payer BC | END | disposition home or self-care (01) | LOC: CARD 07:57 | PROVIDERS: ATTEND Family Medicine | DX: I48.0 Paroxysmal atrial fibrillation (principal) | CPT/HCPCS: 93307-TC ==

== ENCOUNTER 2023-01-05 23:07 | Emergency (ER) | payer BC, OTHER ==
[~2023-01-05] VITALS: Ht 165.1 cm; Wt 79.8 kg
[2023-01-05] MEDS ORDERED: MECLIZINE HCL 25 MG TABLET ONE (23:11)
[2023-01-05] MEDS ORDERED: MECLIZINE HCL 25 MG TABLET PO ONE (23:30)
[2023-01-05] MEDS ORDERED: ONDANSETRON HCL/PF 4 MG/2 ML VIAL ONE (23:40)
--- NOTE | 2023-01-05 23:47 | NUR ---
BLOOD COLLECTED AND SENT TO LAB
[2023-01-06] MEDS ORDERED: ONDANSETRON HCL/PF 4 MG/2 ML VIAL IV ONE
[2023-01-06] MEDS ORDERED: IV NS 0.9% 1,000 ML IV ONE
[2023-01-06 00:05] LABS: BASOPHILS % (AUTO) 0.4 % (0.0-2.0); HEMATOCRIT 40 % (33-45); HEMOGLOBIN 13.4 g/dL (11.5-14.8); LYMPHOCYTES # (AUTO) 2.1 K/uL (0.8-4.8); LYMPHOCYTES % (AUTO) 33.6 % (20.0-44.0); MEAN CORPUSCULAR HGB CONC 34 g/dl (31.0-36.0); MEAN CORPUSCULAR VOLUME 87 fL (82-100); MONOCYTES # (AUTO) 0.7 K/uL (0.1-1.30); MONOCYTES % (AUTO) 11.1 % (2.0-12.0); NEUTROPHILS # (AUTO) 3.4 K/uL (1.8-8.9); NEUTROPHILS % (AUTO) 53.9 % (43.0-81.0); PLATELET COUNT (AUTO) 274 K/uL (150-450); WHITE BLOOD COUNT (AUTO) 6.2 K/uL (4.3-11.0)
--- NOTE | 2023-01-06 00:11 | NUR ---
Patient is resting comfortably in bed with eyes closed. Easily aroused. VSS
[2023-01-06 00:15] LABS: CALCIUM, SERUM 8.6 mg/dL (8.5-10.1); CREATININE 0.8 mg/dL (0.6-1.3); POTASSIUM 3.7 mmol/L (3.5-5.1)
--- NOTE | 2023-01-06 02:19 | NUR ---
Patient discharged to home in stable condition. Written and verbal after care instructions given. Patient verbalizes understanding of instruction.
[2023-01-06 02:32] VITALS: BP 121/64
== END 2023-01-06 02:33 | disposition home or self-care (01) ==
LOC: ER 23:09
DX: R42 Dizziness and giddiness (principal); E78.5 Hyperlipidemia, unspecified; I48.91 Unspecified atrial fibrillation; Z86.16 Personal history of COVID-19; Z88.0 Allergy status to penicillin; Z88.2 Allergy status to sulfonamides; Z79.899 Other long term (current) drug therapy
CPT/HCPCS: 99283; 96374; 96361; 85025; 80048; 36415; J8597; J2405; J7030

== ENCOUNTER 2023-02-25 07:45 | Outpatient (CLI) | payer BC, OTHER ==
[2023-02-25 08:28] LABS: BASOPHILS % (AUTO) 0.3 % (0.0-2.0); HEMATOCRIT 40 % (33-45); HEMOGLOBIN 13.6 g/dL (11.5-14.8); LYMPHOCYTES # (AUTO) 1.7 K/uL (0.8-4.8); LYMPHOCYTES % (AUTO) 25.8 % (20.0-44.0); MEAN CORPUSCULAR HGB CONC 34 g/dl (31.0-36.0); MEAN CORPUSCULAR VOLUME 88 fL (82-100); MONOCYTES # (AUTO) 0.7 K/uL (0.1-1.30); MONOCYTES % (AUTO) 10.5 % (2.0-12.0); NEUTROPHILS % (AUTO) 62.4 % (43.0-81.0); PLATELET COUNT (AUTO) 286 K/uL (150-450); RED BLOOD CELL COUNT(AUTO) 4.54 MIL/uL (4.0-5.2); WHITE BLOOD COUNT (AUTO) 6.5 K/uL (4.3-11.0)
[2023-02-25 12:17] LABS: BILIRUBIN,TOTAL 0.4 mg/dL (0.2-1.0); CALCIUM, SERUM 9.1 mg/dL (8.5-10.1); CREATININE 0.7 mg/dL (0.6-1.3); POTASSIUM 4.3 mmol/L (3.5-5.1); TOTAL PROTEIN, SERUM 7.5 g/dL (6.4-8.2)
== END 2023-02-25 23:59 | disposition home or self-care (01) ==
LOC: LAB 07:45
PROVIDERS: ATTEND Internal Medicine Hematology & Oncology
DX: Z13.228 Encounter for screening for other metabolic disorders (principal); D64.9 Anemia, unspecified; D51.9 Vitamin B12 deficiency anemia, unspecified
CPT/HCPCS: 36415; 80053-TC; 82607-TC; 85025-TC; 85378-TC

== ENCOUNTER 2023-03-18 09:49 | Outpatient (CLI) | payer BC, OTHER | END 2023-03-18 23:59 | disposition home or self-care (01) | LOC: RAD 09:49 | PROVIDERS: ATTEND Family Medicine | DX: M17.12 Unilateral primary osteoarthritis, left knee (principal); M25.862 Other specified joint disorders, left knee; M25.562 Pain in left knee | CPT/HCPCS: 73562 ==

== ENCOUNTER 2023-03-25 09:11 | Outpatient (CLI) | payer BC, OTHER | END 2023-03-25 23:59 | disposition home or self-care (01) | LOC: MRI 09:11 | PROVIDERS: ATTEND Orthopaedic Surgery | DX: S83.242A Other tear of medial meniscus, current injury, left knee, initial encounter (principal); M17.12 Unilateral primary osteoarthritis, left knee; M25.862 Other specified joint disorders, left knee; M25.562 Pain in left knee; M94.262 Chondromalacia, left knee; X58.XXXA Exposure to other specified factors, initial encounter; Y93.89 Activity, other specified; Y92.89 Other specified places as the place of occurrence of the external cause; Y99.8 Other external cause status | CPT/HCPCS: 73721-TC ==